=== PATIENT | female | born 1935 | race Caucasian/White ===

== ENCOUNTER → 2016-10-14 | Outpatient (CLI) | payer OTHER ==
[~2016-10-14] MED LIST: ACETAMINOPHEN325 M1 PO; ADULT LOW DOSE81 MG PO; AUGMENTIN 875875 MG PO; CALCIUM 500 +1 EAC5 PO; DOXYCYCLINE 10100 MG PO; DUONEB 2.5-0.5 M3 ML INH; ENOXAPARIN30 MG/0.1 SUBQ; LIPITOR20 MG PO; LOPRESSOR25 PO; MICARDIS40 MG PO; MICONAZOLE NITR45 G1 TOP; MIRALAX17 GM PO; MORPHINE TOP; NEXIUM40 MG PO; NICOTINE TRANSD14 M1 TRANSDERM; NORCO 5-325 TA1 EACH PO; NORVASC 5 MG TAB5 MG PO; NORVASC10 MG PO; OS-CAL 500+D C1 EACH PO; PLAVIX 75 MG TA75 MG PO; PREDNISONE 20 M20 M1 PO; PROAIR HFA8.5 GM INH; SILVADENE TOP; SYNTHROID100 MCG PO; TOPROL XL100 MG PO; TRAMADOL 50 MG50 MG PO
== END ==
LOC: CAT 09:15
DX: I71.4 Abdominal aortic aneurysm, without rupture (principal); R16.1 Splenomegaly, not elsewhere classified

== ENCOUNTER 2016-12-30 16:35 | Inpatient (IN) | payer OTHER ==
[~2016-12-30] VITALS: Ht 170.2 cm; Wt 63.8 kg
--- NOTE | ~2016-12-30 | S ---
[facility] [address] [place] [address] SURGICAL PATH RPT PROCEDURE Name: NANNETTE STILL Room #: 457-P ADM IN M.R.#: [id number] Admission: 12/30/16 Date of : 33 Discharge: Report #: [id number] Path Case #: [id number] PATHOLOGY REPORT COLLECTION DATE: 01/01/2017 RECEIVED DATE: 01/01/2017 SUBMITTING PHYS: Dr. Alberto Barahona OTHER PHYS: Dr. Manjit Aquino SPECIMEN(S) RECEIVED: A.Bone marrow, clot B.Bone marrow, biopsy C.Bone marrow, aspirate smears D.Peripheral smear * * * * * * * * * * * * FINAL DIAGNOSIS: Bone marrow aspirate, biopsy, cell clot and peripheral blood: - Peripheral blood with mild pancytopenia including mild leukopenia, moderate normocytic anemia and mild thrombocytopenia. - Hypercellular bone marrow with trilineage hematopoiesis, mild dyspoiesis and no evidence of lymphoma or acute leukemia. - Scattered non-necrotizing epithelioid granulomas with rare collections of small yeast identified on silver stain. (See comment) COMMENT: Overall the bone marrow is hypercellular for the patient's age with trilineage hematopoiesis, mild dyspoiesis and no evidence of lymphoma or acute leukemia. Scattered variably sized vaguely formed non-necrotizing epithelioid granulomas are identified which show rare collections of small yeast on silver staining. Correlation with serologies and/or microbiology specimens is required. The dyspoiesis is mild and does not meet the morphologic criteria for myelodysplasia. Correlation with clinical history, additional laboratory data and cytogenetics is recommended. The case was discussed with Dr. Alberto Barahona on 01/06/17, at approximately 11:00 AM. (CLW:benjamín; d/t: 01/06/2017) PATHOLOGIST: Justine Vila M.D. REPORT ELECTRONICALLY SIGNED BY: Justine Vila M.D. DATE/TIME: 01/06/2017 15:00 * * * * * * * * * * * * MICROSCOPIC DESCRIPTION: [address] [address] SURGICAL PATH RPT PROCEDURE Name: NANNETTE STILL Room #: 457-P [facility] IN ..#: [id number] Admission: 12/30/16 Date of : 33 Discharge: Report #: [id number] Path Case #: [id number] CBC DATA (01/01/17): WBC: 2,800 /uL; RBC: 3.15; Hgb: 9.0 g/dL; Hct: 27.0%; MCV: 85.8 fL; MCH: 28.5 pg; MCHC: 33.2%; RDW: 19.0%; platelets: 133,000 /uL. Manual white blood cell differential: segs - 80%, bands - 2%, lymphs - 14%, monos - 4%. Peripheral blood smear: Cytomorphological examination of the Benedict's-stained peripheral blood smear confirms the provided data. Red blood cells show moderate normocytic anemia with mild anisopoikilocytosis. Occasional elliptocytes are noted. No schistocytes or microspherocytes are seen. White blood cells are mildly decreased in number. They are predominantly segmented neutrophils and are without significant dyspoiesis or significant left shift. A rare neutrophil has abnormal nuclear lobation. Lymphocytes are predominantly small, round and mature-appearing with condensed chromatin and scant cytoplasm with admixed large granular lymphocytes. On scanning, no markedly atypical lymphoid cells are seen. Monocytes are mature. Platelets are adequate (mildly decreased) in number and mainly normal in morphology with rare larger platelets noted. Aspirate smears: Cytomorphological examination of the Benedict's-stained aspirate smear shows spicules present. The overall cellularity is approximately 80%. The myeloid to erythroid ratio is 2:1. Full myeloid maturation is identified and is without significant dyspoiesis. Erythroid maturation is mildly dyserythropoietic with occasional irregular nuclear contours and rare mitotic figures. In a 500 cell differential, there are less than 1% blasts (no Stu rods are seen), 61% more differentiated myeloids, 32% erythroid precursors, 6% lymphocytes and 1% plasma cells. Megakaryocytes are proportional in number and both normal and abnormal in morphology with variable sizes and nuclear abnormalities. No lymphoid aggregates or markedly atypical lymphoid cells are seen. Plasma cells are without atypia. Iron stain of the aspirate smear shows 1/4+ iron positivity. No ringed sideroblasts are identified. Bone marrow core biopsy and cell clot: The decalcified bone marrow core biopsy is adequate. The bone marrow is hypercellular with an overall cellularity of approximately 60%. The myeloid to erythroid ratio is 2:1. Myeloid maturation is without significant dyspoiesis. Erythroid maturation is mildly dyserythropoietic. Megakaryocytes are normal in number and both normal and abnormal in morphology. No lymphoid aggregates or markedly atypical lymphoid cells are seen. Bony trabeculae and blood vessels are unremarkable. Scattered variably sized, non-necrotizing, vaguely formed epithelioid granulomas are identified. The cell clot has occasional spicules present that are similar in cellularity and differential morphology as previously described. Iron stain of the cell clot (block A1) shows 1/4+ iron positivity with spicules present. Properly-controlled special stains are performed. [address] [address] SURGICAL PATH RPT PROCEDURE Name: NANNETTE STILL Room #: 457-P [facility] IN M.R.#: [id number] Admission: 12/30/16 Date of : 33 Discharge: Report #: [id number] Path Case #: [id number] (Block A1): GMS: stains rare small yeast; AFB: negative for acid fast bacilli. (Block B1): GMS: stains occasional scattered and rare clusters of small yeast; AFB: negative for acid fast bacilli. Flow cytometry: Flow cytometric immunophenotypic analysis was performed at [facility]. The diagnosis is "no diagnostic immunophenotypic abnormalities detected". There are 8.6% lymphocytes. Of the lymphocytes, there are 86% T cells with a CD4:CD8 ratio of 0.5, and no aberrant T cell antigen expression, and 2% polyclonal B cells. There are 0.3% CD34 positive cells (blasts). No immunophenotypic evidence of a lymphoproliferative disorder, acute leukemia, increase in blasts or increased plasma cells is identified. Please see separate flow cytometry report from [facility] ([id number]). Cytogenetics: Cytogenetic chromosomal analysis is pending at [facility] ([id number]). (CLW:benjamín; d/t: 01/06/2017) GROSS PATHOLOGY: A. Received in formalin labeled "Nannette Still and clot, BM aspirate," is blood coagulum, measuring 3.0 x 1.9 x 0.7 cm in aggregate dimensions. The specimen is submitted entirely in cassette A1. B. Received in formalin labeled "Nannette Still and BM biopsy," is a single needle core of chowdhury bone, measuring 0.4 cm in length and 0.2 cm in diameter. The specimen is submitted entirely in cassette B1, following decalcification. (TTL; 01/04/2017) CLINICAL HISTORY: Histoplasmosis. 81-year-old woman with mild pancytopenia. INITIAL CPT CODE(S): A; 98548, 47996, 47607, 92444 B; 74100, 02801, 08104, 24516 C; 58771, 10633 D; 78108 Professional services performed by [facility] at [address] [place] [address] Technical services performed by [facility] at [address] [place] [id number] SURGICAL PATH RPT PROCEDURE Name: NANNETTE STILL Room #: 457-P [facility] IN M.R.#: [id number] Admission: 12/30/16 Date of : 34 Discharge: Report #: [id number] Path Case #: [id number] [place] [address]. [facility] [address] [place] [address] PHONE: [phone] DIRECTOR: Foster Clark M.D. * * * END OF REPORT * * *
--- NOTE | ~2016-12-30 | H ---
[facility] [place] [address] [address] HISTORY AND PHYSICAL Name: ARMANDO STILL Room #: 457-P ADM IN M.R.#: [id number] Admission: 12/30/16 Attend Phys: Ida Swan MD Discharge: Date of : 34 Report #: [id number] THIS REPORT FOR: //name// CC: Bouchra Swan ATTENDING PHYSICIAN: Dr. Ida Swan. PRIMARY CARE PHYSICIAN: Dr. Bouchra Reyes. CHIEF COMPLAINT: Abdominal pain, nausea and vomiting. HISTORY OF PRESENT ILLNESS: The patient is an 81-year-old female who came into the ER complaining of left upper quadrant and epigastric abdominal pain. This started yesterday and she has been very nauseous and actually vomited yesterday, the only thing she has had eat today is protein shake. She has been somewhat short of breath as well. She is familiar to [facility] as she has been here 3 times within the last 3 months and she has continued to decline. She was previously seen for right carotid endarterectomy, which was done in October and since then she has been back in the hospital for hypoxia, acute kidney injury. She was noted to have sores developed in her mouth as well as perianal sore. The sores in her mouth were biopsied and pathology showing granulomatous inflammation and microorganisms suggestive of histoplasmosis, there was no malignancy noted. Her rectal lesion was also biopsied and shown to have numerous fungal yeast elements with marked acute inflammation, ulceration and granulation tissue. This was negative for malignancy as well. She has not been eating well. Her weight has gone down about 30 sounds since October. She has been previously seen by hematology for pancytopenia back in October, which has stabilized. She has monoclonal gammopathy. She has never had any history of pancreatitis. Since arrival she has been given pain medication and is now quite sleepy, denies any nausea at this time. PAST MEDICAL HISTORY: Abdominal aortic aneurysm, COPD, hypertension, UTI, hypothyroidism, chronic kidney disease stage 3, monoclonal gammopathy, hyperlipidemia, peripheral arterial disease. PAST SURGICAL HISTORY: Right renal artery stent, bilateral iliac stents, hysterectomy, left carotid endarterectomy and a right carotid endarterectomy just done in 10/2016. She also had oral surgery with maxillary extractions. ALLERGIES: NEOSPORIN, UNKNOWN REACTION. HOME MEDICATIONS: Augmentin b.i.d., albuterol inhaler p.r.n., nicotine patch daily, Plavix 75 mg daily, Lipitor 20 mg daily, aspirin 162 mg daily, tramadol 50 mg q. 4 hours, Tylenol p.r.n., MiraLax 17 grams daily, levothyroxine 100 mcg daily, miconazole b.i.d. and morphine, Silvadene to the rectum t.i.d. [facility] [address] [place] [address] HISTORY AND PHYSICAL Name: ARMANDO STILL Room #: 457-P [facility] IN M.R.#: [id number] Admission: 12/30/16 Attend Phys: Ida Swan MD Discharge: Date of : 33 Report #: [id number] SOCIAL HISTORY: The patient had been a smoker up until recently when she just quit, she had been smoking up to 1-1/2 packs per day for 65 years. Denies any regular alcohol use and she is currently coming from assisted facility. FAMILY HISTORY: Her sister has IBS. Her brother had an FL at the age of 47 and her father had an FL at the age of 70. REVIEW OF SYSTEMS: Unobtainable due to altered mental status. PHYSICAL EXAMINATION: GENERAL: The patient is sleepy female in no acute distress. VITAL SIGNS: Temperature is 36.6, heart rate 80, respirations 18, blood pressure 125/69 and oxygen 95% on room air. HEENT: PERRLA. Sclerae is nonicteric. Oral mucosa is pink and dry. She has multiple oral lesions. NECK: Supple. There is no JVD noted. CARDIOVASCULAR: Normal S1, S2 with 3/6 systolic ejection murmur. RESPIRATORY: Breath sounds are clear, bilateral upper lobes. She is diminished in both bases. Breathing is nonlabored. ABDOMEN: Soft and tender, the epigastric and left upper quadrant areas. Bowel sounds are positive. VASCULAR: No edema noted. Pedal pulses are 2+. NEUROLOGIC: The patient is very sleepy, but does arouse easily and will shake her head yes and no, but it is mostly nonverbal. She will follow simple commands. SKIN: Intact except for the perirectal ulcer, which is draining a small amount of purulent fluid. LABORATORY AND DIAGNOSTICS: WBC is 5.1 with bands of 9%, hemoglobin 10.3, platelets 168. Sodium 132, potassium 4.9, BUN 53, creatinine 2.7, glucose 107 and lactate is 1.1, calcium is 11.3. AST and ALT are within normal limits. Alkaline phosphatase is 210. Lipase is 1157. UA showed 1+ leukocyte esterase, few WBCs, few bacteria. CT of the abdomen and pelvis shows some inflammatory changes involving the tip of the pancreatic tail suggesting pancreatitis, these changes produces mild thickening of the lateral left fascia and partially involved the proximal descending colon. There was no pseudocyst formation and there are tiny gallstones, but no belly area obstruction. There is rapidly enlarging bilateral adrenal masses, compared to previous exam. There is renal artery stents and bilateral iliac stents. The abdominal aortic aneurysm appears slightly larger. There is no retroperitoneal hemorrhage. ASSESSMENT AND PLAN: 1. Acute pancreatitis. Etiology for this is not clear. She did have multiple other changes on her CT which may be concerning for underlying cancer pathology and there is concern for histoplasmosis as well. We will keep her n.p.o. and continue with pain control. Continue IV fluids. Repeat lipase in the morning. [facility] [address] [place] [address] HISTORY AND PHYSICAL Name: ARMANDO STILL Room #: 457-P [facility] IN [facility]#: [id number] Admission: 12/30/16 Attend Phys: Ida Swan MD Discharge: Date of : 34 Report #: [id number] 2. Acute on chronic kidney disease. She has had elevated creatinine in the recent past, but upon discharge on 12/12/2016 her creatinine was down to 1.7. She does have poor p.o. intake. We will continue IV fluids. She is not on any nephrotoxic medications. 3. Enlarging adrenal masses. According to CT these are rapidly enlarging from the previous exam, I am not sure if these are related to underlying cancer pathology or possibly histoplasmosis, then may need to be biopsied. 4. Had oral lesions, her recent biopsy suggested histoplasmosis. Continue with pain control. 5. Perianal lesion, recent biopsy suggests fungus, I am not sure if this has been discussed as concern for histoplasmosis along with oral lesions. Perianal lesion has been by cultured. The surrounding tissue does not look infected, so we will hold off on antibiotics at this time. 6. Chronic obstructive pulmonary disease. This is stable. No signs of exacerbation. 7. Abdominal aortic aneurysm. This was known and is slightly larger compared to previous CT, continue to follow and control blood pressure. 8. Monoclonal gammopathy. The patient has previously been evaluated by Dr. Melvin with hematology-oncology and who did not feel that she needed a bone marrow biopsy. 9. 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 She also has weight loss as well as recent pancytopenia and hypercalcemia, increasing adrenal masses. I did find that in some cases of disseminated histoplasmosis, pancreatitis may be a complication. We will consult Infectious Disease for further evaluation for this. 10. Deep venous thrombosis prophylaxis, place sequential compression devices. We will continue to follow the patient closely throughout the hospitalization and make changes based on clinical status. <ELECTRONICALLY SIGNED> By: YOHANA Nick 01/05/17 0658 [phone] YOHANA Nick /lashanda
--- NOTE | ~2016-12-30 | HC ---
[facility] [place] [address] [address] CONSULTATION Name: ARMANDO STILL Room #: 457-P [facility] IN M.R.#: [id number] Admission: 12/30/16 Attend Phys: Manjit Torres MD Discharge: Date of : 34 Report #: [id number] THIS REPORT FOR: //name// CC: Manjit Reyes DATE OF SERVICE: 12/31/2016 REASON FOR CONSULTATION: Acute kidney injury. HISTORY OF PRESENT ILLNESS: This 81-year-old female was recently admitted to [facility] with acute kidney injury secondary to dehydration. She has known diffuse atherosclerotic cardiovascular disease with longstanding tobacco abuse and multiple complications thereof. She is status post previous renal artery stents, bilateral iliac artery stents and prior carotid endarterectomy. She has chronic kidney disease with a baseline creatinine in the mid 1 range. She has had prior episodes of acute kidney injury with creatinines having ranged as high as 3.0. She was discharged from [facility] on 12/12, due to urinary tract infection. She is readmitted at this time with diffuse weakness and left upper quadrant pain. Her condition has deteriorated over the past several days. She has had poor oral intake of food and fluids. She denies fevers, chills, or sweats. PAST MEDICAL HISTORY: Remarkable for a recent oral lesion biopsy revealing evidence of histoplasmosis. The patient has been seen by Dr. Alberto Barahona in evaluation, though details of this and any treatment thereof are not known. Past medical history remarkable as described above. She has a known rectal lesion status post biopsy revealing yeast elements. She has lost approximately 30 pounds over the past several months. Past medical history is otherwise remarkable as described above. The patient has also undergone previous hysterectomy and multiple dental extractions. ALLERGIES: Reported to NEOSPORIN. MEDICATIONS ON ADMISSION: Include Augmentin, albuterol, nicotine patch, Plavix, Lipitor, aspirin, tramadol, Tylenol, MiraLax, levothyroxine, miconazole, morphine, and Silvadene. PERSONAL AND SOCIAL HISTORY: The patient is a reformed smoker, having smoked until very recently. She has a history of approximately one and half packs per day for 65 years. FAMILY HISTORY: Remarkable for myocardial infarction. Negative for renal disease. REVIEW OF SYSTEMS: Remarkable for dyspnea with minimal exertion. She denies [address] [address] CONSULTATION Name: ARMANDO STILL Room #: [address] [place] [address] [place] ..#: [id number] Admission: 12/30/16 Attend Phys: Manjit Torres MD Discharge: Date of : 33 Report #: [id number] productive cough or hemoptysis. She denies chest pain or palpitations. She denies nausea, vomiting, diarrhea or constipation. PHYSICAL EXAMINATION: GENERAL: Revealed a lethargic, but arousable, elderly female who appears older than her stated age. VITAL SIGNS: Temperature 98.3, pulse 55, respirations 18, and blood pressure 112/43. SKIN: Warm and dry. There is diminished turgor noted. Mucous membranes are very dry. Neck veins are flat. HEENT: The head is normocephalic and atraumatic. The sclerae are white. The pharynx is benign. NECK: Supple. LUNGS: Garnett are grossly clear to percussion and auscultation. CARDIOVASCULAR: Reveals a regular rate and rhythm without rub. ABDOMEN: Soft and nontender. NEUROLOGIC: Reveals the patient to be alert and cooperative. There is no focal neurologic deficit noted. LABORATORY STUDIES: Available at the time of consultation include sodium 132, potassium 4.9, chloride 101, CO2 of 25, BUN 53, creatinine 2.7, and glucose 107. White blood cell count 5100, hemoglobin 10.3, hematocrit 31.3, and platelet count 168,000. Review of radiographs revealed an abnormal CT scan revealing bilateral adrenal masses, suspected pulmonary process. ASSESSMENT: 1. Acute kidney injury secondary to acute dehydration/prerenal azotemia in the setting of ischemic nephropathy. 2. Chronic kidney disease. 3. Possible acute adrenal insufficiency secondary to adrenal gland enlargement presumed on an infectious etiology/histoplasmosis. 4. 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 5. Diffuse atherosclerosis. 6. Previous oral lesions with biopsy showing histoplasmosis. 7. Advanced chronic obstructive pulmonary disease secondary to longstanding tobacco abuse. PLAN: 1. I will obtain a random serum cortisol and initiate stress doses of Solu-Cortef 100 mg IV q.6 hours pending result thereof. ID consultation with her Dr. Barahona has been requested regarding treatment of her suspected disseminated histoplasmosis. 2. This patient is quite ill in the setting of a suspected disseminated infection, prerenal azotemia, malnutrition and chronic tobacco abuse. There is [address] [address] CONSULTATION Name: ARMANDO STILL Room #: 457-P ADM IN M.R.#: [id number] Admission: 12/30/16 Attend Phys: Manjit Torres MD Discharge: Date of : 34 Report #: [id number] no family present at this time to discuss these matters with. Please see orders. <ELECTRONICALLY SIGNED> By: Haris Aquino MD 01/02/17 0826 [id number] Haris Aquino MD /nt
--- NOTE | ~2016-12-30 | HC ---
[facility] [address] CONSULTATION Name: ARMANDO STILL Room #: 457-P ADM IN M.R.#: [id number] Admission: 12/30/16 Attend Phys: Manjit Torres MD Discharge: Date of : 34 Report #: [id number] THIS REPORT FOR: //name// CC: Manjit Reyes INFECTIOUS DISEASE CONSULTATION REASON FOR CONSULTATION: I was asked to evaluate concerning suspected histoplasmosis. Now admitted with pancreatitis. HISTORY OF PRESENT ILLNESS: The patient was an 81-year-old, who I had seen last week for evaluation of possible histoplasmosis infection. Review of her previous records and having talked with oncology, wound care and pathology, I identified a gingival biopsy and a perianal biopsy that showed organisms consistent with histoplasma. She also had imaging studies including CT scan of the chest and abdomen, which showed no evidence of pulmonary disease. She has a known aortic aneurysm, approximately 5.2 cm, along with some adrenal hypertrophy. She has known vasculopathy and she had previous stenting procedures. She also has underlying COPD. Following the evaluation last week, laboratory studies were to be obtained. I also ordered itraconazole. According to records now, it does not appear that the patient was taking the itraconazole. Family members were unsure. I do know that they received the faxed orders from my office to the [facility]. Over the last 2 days, she has developed increased nausea associated with vomiting and upper abdominal pain. Hospitalized now with [id number] renal failure along with evidence of pancreatitis, with CT scan showing increased inflammatory changes around the pancreas and her creatinine is elevated. She also was noted on CAT scan to have enlarging adrenal masses bilaterally, which have increased significantly over the past 2 months. No documented fever, chills or sweats. REVIEW OF SYSTEMS: She has had no cough or sputum production. No chest pain. No dysuria or frequency. PAST MEDICAL HISTORY: COPD, hypertension, coronary artery disease, congestive heart failure, peripheral vascular disease, aortic aneurysm, chronic kidney disease, osteoporosis, hypothyroidism, monoclonal gammopathy of indeterminant significance, hyperlipidemia, diverticulitis and carotid endarterectomy. FAMILY HISTORY: Noncontributory, other than a report of a sister that had histoplasma ocular disease. ALLERGIES: None known. MEDICATIONS: As noted on her MAR, which were reviewed. PHYSICAL EXAMINATION: [address] [address] CONSULTATION Name: ARMANDO STILL Room #: [address] [place] [address] IN M.R.#: [id number] Admission: 12/30/16 Attend Phys: Manjit Torres MD Discharge: Date of : 34 Report #: [id number] VITAL SIGNS: She was afebrile and hemodynamically stable. GENERAL: She was alert and cooperative, but very weak. SKIN: Unremarkable. LYMPH: Unremarkable. HEENT: Mouth had gingival ulcerations, unchanged from last week. Mouth was dry. LUNGS: Clear. HEART: Regular. ABDOMEN: Soft. Tender in the epigastric region. No hepatosplenomegaly or mass appreciated. EXTREMITIES: Unremarkable. GENITOURINARY: Her perianal ulcer was unchanged. LABORATORY STUDIES: Sodium 132, potassium 4.9, bicarbonate 25 and creatinine 2.7, noting her previous creatinine of 1.6. Lipase 1157. Alkaline phosphatase 210, ALT 17. Hemoglobin 10.3, WBC 5.1, unremarkable differential and platelet count 168,000. Lactate 1.1. LDH 151. Urinalysis unremarkable. CT scan of the abdomen and pelvis, left lower lobe atelectasis, mild steatosis, mild pancreatitis changes and increased adrenal masses. No significant retroperitoneal adenopathy. IMPRESSION AND PLAN: An 81-year-old with now acute pancreatitis. Cause of this is yet to be determined. 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 We will need to confirm the diagnosis. Underlying hematologic malignancy is yet to be ruled out. Acute renal failure. Recommendation, we will obtain serologies, HIV testing and sedimentation rate. Arrange for bone marrow biopsy. Begin antifungal therapy if not done yet. Itraconazole may be associated with some nausea and vomiting, but typically, I have not seen evidence of pancreatitis. We will see if she was actually on this steroid or not before determining next step in our treatment. <ELECTRONICALLY SIGNED> By: Alberto Barahona MD 12/31/162012 1125 1437 Alberto Barahona MD /nt
--- NOTE | ~2016-12-30 | HC ---
[facility] [place] [address] CONSULTATION Name: ARMANDO STILL Room #: 457-P ADM IN M.R.#: [id number] Admission: 12/30/16 Attend Phys: Ida Swan MD Discharge: Date of : 34 Report #: [id number] THIS REPORT FOR: //name// CC: Alberto Fisher PhD Luke Aquino MD REASON FOR CONSULTATION: Leukopenia. 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 She was admitted this admission on December 31 for pancreatitis, which appears to be resolving. She also on admit was found to have a white count of 5.1. On the , 2 days ago, it was 3.8 and yesterday, 1.6 and today 5. Also during that same time, her hemoglobin had been a little bit lower yesterday at 9.1; today, it is 9.2. Platelet count 2 days ago 142,000; yesterday 100,000 and today 126,000. Note that the differential done several days ago does not show any acute forms, but does show some slight increase in segmented neutrophils. I am suspicious that this might have been related to a test tube draw phenomenon. The patient also had a bone marrow biopsy several days ago, which is pending. She says recently she has not had any known fevers or chills. Had been shortness of breath earlier, but it is more fatigue. Does have a generalized achiness. She is not aware of any skin rash. Does still have a little sore bottom from the ulcers. Note that she had been tested for amyloid stain in the past and was negative. Also her renal function, which had been slightly worse on admission, is now doing better. Creatinine had been at 2.7 and is now down to 1.7. Transaminases, lipase had been as high as 1157 on admit, down to 837. Total bilirubin has remained normal. Calcium had been high at 11.3 on admit, currently 8.9. Alkaline phosphatase was 210, now 126; ALT has been stable at 1719 throughout. Total protein low of 4.5. Albumin 1.6. Iron studies done back in November showed percent sat of 41, iron of 76. Coags done earlier this admit had been normal. Note that her serum protein electrophoresis on 11/13/2016 showed the M spike of 0.1 grams per deciliter. Note that she has had a total CD4 low at 145 this admit. Sed rate had been 15 this admit. IgG back on December 10 was 552, IgA 84 and IgM 223. Serum immunofixation electrophoresis done twice on 11/13/2016; it showed an IgM monoclonal protein with kappa light chain as well as an IgG monoclonal protein with lambda light chain. When repeated on December 10 they only saw the IgM kappa monoclonal protein, suggesting these are both very small. TSH back on December 08 was 11.7. Ferritin on [facility] [address] [place] [address] CONSULTATION Name: ARMANDO STILL Room #: 884-P ADM IN Tea.R.#: [id number] Admission: 12/30/16 Attend Phys: Ida Swan MD Discharge: Date of : 34 Report #: [id number] December 31 was 956; in November, it was 438. Folic acid in November of 5.7. Vitamin B12 was 18, same date. HIV antibody is pending. Intact PTH back in November was low at 7. The patient had urine test including free kappa-lambda light chain ratio of 24-hour urine. The free kappa light chains were 160 mg per liter; over 24 hours, they had been 209 mg for 24 hours. The free lambda over 24 hours was 13, giving a ratio of 16.25, which is little bit above normal. The patient also on November 13 had a, I believe, this was a serum free light chain kappa that was 108, lambda was 45, with a kappa-lambda ratio of 2.4, which is above normal. The patient has had imaging including CT abdomen and pelvis done on December 30, showing no inflammatory changes involving the tip of the pancreatic tail. They did see some mild thickening. Lower chest had chronic changes in both lungs. CT chest, high resolution, December 23, showed extensive coronary artery calcification and atherosclerosis. PAST MEDICAL HISTORY: Has a history of monoclonal gammopathy of unknown significance, with both IgG which may have disappeared and IgM which persisted at a low quantity. Bone marrow is pending. 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 SOCIAL HISTORY: Had worked a number of jobs. Smoked for 65 years. No significant alcohol. MEDICATIONS: At this time in the hospital include IV fluids, tamsulosin 0.4 daily, amphotericin 200 mg daily, nystatin rinse q.6h. scheduled, morphine and Silvadene topically, Zofran p.r.n. and electrolytes as needed. PHYSICAL EXAMINATION: GENERAL: The patient appears her stated age. VITAL SIGNS: Height is 5 feet 7, which is 170.2 cm. Weight is 140 pounds, which is 63.8 kilograms. Blood pressure 117/67, O2 sat 93%, respirations 20, pulse 99 and temperature 98.4. MOOD: She is pleasant, but tired. Has a Dobbhoff in place in her naris. NEUROLOGIC: Face is symmetrical. She is moving all extremities. LYMPHATICS: No enlarged lymph nodes in the supraclavicular, cervical, axillary or inguinal region. ABDOMEN: Slightly obese, slightly tender, but not of a surgical nature, more of a discomfort. EXTREMITIES: Without clubbing or cyanosis. There is trace edema. ASSESSMENT AND PLAN: 1. Leukopenia, resolved overnight. Suggest that this might have been artifact and an invtro phenomenon related to test tube filling. Continue monitoring, [place] [address] CONSULTATION Name: ARMANDO STILL Room #: 457-P [facility] IN M.R.#: [id number] Admission: 12/30/16 Attend Phys: Ida Swan MD Discharge: Date of : 34 Report #: [id number] biopsy results. 2. History of does monoclonal gammopathy of undermined significance, IgG and IgM. Await bone marrow biopsies. 3. Disseminated histoplasmosis. Amphotericin per ID. 4. Hypothyroid. Will need replacement. 5. Protein-calorie malnutrition. Continue either Dobhoff feeding or TPN. 6. Renal insufficiency. Continue monitoring and hydration cautiously. 7. Anemia. Continue monitoring. We will follow with you. <ELECTRONICALLY SIGNED> By: Dalton Melvin MD 01/07/17 0735 0805 1114 Dalton Melvin MD /nt
[2016-12-30 16:38] VITALS: BP 86/55
[2016-12-30 17:36] LABS: URINE BILIRUBIN NEGATIVE (Negative); URINE BLOOD 2+ (Negative); URINE COLOR YELLOW; URINE GLUCOSE-RANDOM* NEGATIVE (Negative); URINE KETONES NEGATIVE (Negative); URINE LEUKOCYTES-REFLEX 1+ (Negative); URINE PROTEIN (DIPSTICK) 1+ (Negative); URINE UROBILINOGEN 0.2 E.U./dl (0.2-1.0)
[2016-12-30 17:47] LABS: URINE WBC-REFLEX 6-15 Few /HPF (0-5)
[2016-12-30 17:48] LABS: CASTS None Seen /LPF (None Seen); CRYSTALS None Seen /LPF (None Seen); SQUAMOUS 0-3 Few /LPF (0-3); URINE RBC 0-2 Rare /HPF (0-2)
[2016-12-30 20:15] LABS: ABSOLUTE NEUTROPHILS 3.8 thou/uL (1.4-8.2); BASOPHILS 0.7 % (0.0-2.0); EOSINOPHILS 4.1 % (0.0-3.0); HEMATOCRIT 31.3 % (37.0-47.0); HEMOGLOBIN 10.3 gm/dL (12.0-15.0); LYMPHOCYTES 11.9 % (24.0-44.0); MANUAL DIFF NO; MCH 28.2 pg (26.0-34.0); MCHC 32.8 g/dL (28.0-37.0); MCV 86.1 fL (80.0-100.0); MONOCYTES 8.3 % (1.0-8.0); PLATELET COUNT 168 thou/uL (150-400); RBC 3.63 mil/uL (4.20-5.00); RDW 18.7 % (10.5-14.5); WBC 5.1 thou/uL (4.0-11.0)
[2016-12-30 20:26] LABS: CALCIUM 11.3 mg/dL (8.5-10.1); CREATININE 2.7 mg/dL (0.6-1.3); POTASSIUM 4.9 mmol/L (3.5-5.1)
[2016-12-30 20:30] LABS: ALBUMIN 2.1 g/dL (3.4-5.0); TOTAL PROTEIN 5.5 g/dL (6.4-8.2)
[2016-12-30 21:45] VITALS: BP 125/69
[2016-12-31] VITALS (13 sets, daily range): BP systolic 62–156; BP diastolic 22–62
[2017-01-01 04:44] VITALS: BP 134/74
[2017-01-01 06:14] LABS: MCH 28.5 pg (26.0-34.0); MCHC 33.2 g/dL (28.0-37.0); MCV 85.8 fL (80.0-100.0); PLATELET COUNT 133 thou/uL (150-400); RBC 3.15 mil/uL (4.20-5.00); WBC 2.8 thou/uL (4.0-11.0)
[2017-01-01 06:15] LABS: MANUAL DIFF YES
[2017-01-01 06:32] LABS: ALBUMIN 1.9 g/dL (3.4-5.0); CALCIUM 9.6 mg/dL (8.5-10.1); CREATININE 2.7 mg/dL (0.6-1.3); MAGNESIUM 2.1 mg/dL (1.8-2.4); POTASSIUM 4.8 mmol/L (3.5-5.1); TOTAL BILIRUBIN 0.7 mg/dL (<0.1-1.0)
[2017-01-01 07:38] LABS: ABSOLUTE NEUTROPHILS 2.3 thou/uL (1.4-8.2); TOTAL CELL COUNT 100
[2017-01-01 07:54] LABS: INR 1.3; PROTIME 13.3 Seconds (9.3-11.4)
[2017-01-01 07:59] VITALS: BP 152/79
[2017-01-01 09:11] VITALS: BP 158/80
[2017-01-01 11:44] VITALS: BP 156/73
[2017-01-01 15:07] LABS: CD3 % 85.8 % (57.5-86.2); CD4:CD8 0.51 (0.92-3.72)
[2017-01-01 19:27] VITALS: BP 167/71
[2017-01-02 02:57] VITALS: BP 168/69
[2017-01-02 04:01] LABS: HEMATOCRIT 29.4 % (37.0-47.0); HEMOGLOBIN 9.7 gm/dL (12.0-15.0); MCH 28.8 pg (26.0-34.0); MCHC 32.9 g/dL (28.0-37.0); MCV 87.7 fL (80.0-100.0); RBC 3.36 mil/uL (4.20-5.00); RDW 18.7 % (10.5-14.5)
[2017-01-02 04:15] LABS: CALCIUM 9.4 mg/dL (8.5-10.1); CREATININE 2.7 mg/dL (0.6-1.3); POTASSIUM 4.4 mmol/L (3.5-5.1)
[2017-01-02 07:34] VITALS: BP 140/71
[2017-01-02 11:53] VITALS: BP 170/80
[2017-01-02 16:13] VITALS: BP 157/75
[2017-01-02 19:07] LABS: HISTOPLASMA MYCELIAL-ID Negative (Negative)
[2017-01-02 19:36] VITALS: BP 155/67
[2017-01-02 23:11] VITALS: BP 144/62
[2017-01-03 03:34] VITALS: BP 141/65
[2017-01-03 04:50] LABS: ABSOLUTE NEUTROPHILS 3.1 thou/uL (1.4-8.2); BASOPHILS 0.2 % (0.0-2.0); EOSINOPHILS 1.2 % (0.0-3.0); HEMATOCRIT 26.4 % (37.0-47.0); HEMOGLOBIN 8.7 gm/dL (12.0-15.0); LYMPHOCYTES 9.7 % (24.0-44.0); MCH 28.6 pg (26.0-34.0); MCHC 32.8 g/dL (28.0-37.0); MCV 87.1 fL (80.0-100.0); MONOCYTES 8.5 % (1.0-8.0); PLATELET COUNT 142 thou/uL (150-400); POLYS 80.4 % (36.0-66.0); RBC 3.04 mil/uL (4.20-5.00); RDW 19.3 % (10.5-14.5); WBC 3.8 thou/uL (4.0-11.0)
[2017-01-03 04:53] LABS: MANUAL DIFF NO
[2017-01-03 05:19] LABS: ALBUMIN 1.8 g/dL (3.4-5.0); CREATININE 2.3 mg/dL (0.6-1.3); PHOSPHORUS 3.6 mg/dL (2.5-4.9); POTASSIUM 3.6 mmol/L (3.5-5.1); TOTAL BILIRUBIN 0.6 mg/dL (<0.1-1.0); TOTAL PROTEIN 4.6 g/dL (6.4-8.2)
[2017-01-03 08:14] VITALS: BP 132/53
[2017-01-03 12:26] VITALS: BP 145/59
[2017-01-03 15:55] VITALS: BP 149/65
[2017-01-03 21:04] VITALS: BP 126/52
[2017-01-04 03:29] VITALS: BP 137/66
[2017-01-04 05:19] LABS: ALBUMIN 1.6 g/dL (3.4-5.0); CALCIUM 8.8 mg/dL (8.5-10.1); CREATININE 1.9 mg/dL (0.6-1.3); PHOSPHORUS 2.8 mg/dL (2.5-4.9); POTASSIUM 3.4 mmol/L (3.5-5.1); TOTAL BILIRUBIN 0.6 mg/dL (<0.1-1.0); TOTAL PROTEIN 4.5 g/dL (6.4-8.2)
[2017-01-04 06:54] VITALS: BP 157/59
[2017-01-04 07:26] LABS: HEMATOCRIT 27.5 % (37.0-47.0); HEMOGLOBIN 9.1 gm/dL (12.0-15.0); MCH 28.9 pg (26.0-34.0); MCHC 32.9 g/dL (28.0-37.0); RBC 3.13 mil/uL (4.20-5.00); RDW 19.1 % (10.5-14.5)
[2017-01-04 07:30] LABS: WBC 1.6 thou/uL (4.0-11.0)
[2017-01-04 12:00] VITALS: BP 154/62
[2017-01-04 15:40] VITALS: BP 178/73
[2017-01-04 19:50] VITALS: BP 125/61
[2017-01-05 03:02] VITALS: BP 179/75
[2017-01-05 05:56] LABS: HEMATOCRIT 28.2 % (37.0-47.0); HEMOGLOBIN 9.2 gm/dL (12.0-15.0); MCH 28.9 pg (26.0-34.0); MCHC 32.7 g/dL (28.0-37.0); MCV 88.3 fL (80.0-100.0); RBC 3.2 mil/uL (4.20-5.00); RDW 18.8 % (10.5-14.5)
[2017-01-05 06:16] LABS: ALBUMIN 1.6 g/dL (3.4-5.0); CALCIUM 8.9 mg/dL (8.5-10.1); CREATININE 1.7 mg/dL (0.6-1.3); PHOSPHORUS 2.3 mg/dL (2.5-4.9); POTASSIUM 3.7 mmol/L (3.5-5.1); TOTAL BILIRUBIN 0.6 mg/dL (<0.1-1.0); TOTAL PROTEIN 4.5 g/dL (6.4-8.2)
[2017-01-05 07:21] VITALS: BP 117/67
[2017-01-05 16:00] VITALS: BP 148/58
[2017-01-05 19:10] VITALS: BP 126/84
[2017-01-05 19:20] VITALS: BP 137/65
[2017-01-05 23:08] LABS: HISTOPLASMA MYCELIAL-CF Negative (Neg:<1:2); HISTOPLASMA YEAST BY CF Negative (Neg:<1:2)
[2017-01-06 03:15] VITALS: BP 144/63
[2017-01-06 05:21] LABS: HEMATOCRIT 24.9 % (37.0-47.0); HEMOGLOBIN 8.2 gm/dL (12.0-15.0); RBC 2.83 mil/uL (4.20-5.00); RDW 19.6 % (10.5-14.5); WBC 5.1 thou/uL (4.0-11.0)
[2017-01-06 05:41] LABS: ALBUMIN 1.4 g/dL (3.4-5.0); CALCIUM 8.8 mg/dL (8.5-10.1); CREATININE 1.7 mg/dL (0.6-1.3); PHOSPHORUS 2.3 mg/dL (2.5-4.9)
[2017-01-06 07:08] VITALS: BP 140/63
[2017-01-06 11:11] VITALS: BP 150/66
[2017-01-06 15:15] VITALS: BP 155/68
[2017-01-06 19:08] LABS: HIV 1 AB Negative (Negative); HIV 1 RNA QUALITATIVE Negative (Negative); HIV 2 AB Negative (Negative)
[2017-01-06 19:47] VITALS: BP 131/67
[2017-01-07 03:48] VITALS: BP 148/78
[2017-01-07 05:36] LABS: CALCIUM 9.7 mg/dL (8.5-10.1); CREATININE 1.7 mg/dL (0.6-1.3); POTASSIUM 4.2 mmol/L (3.5-5.1)
[2017-01-07 05:42] LABS: HEMATOCRIT 25.9 % (37.0-47.0); HEMOGLOBIN 8.4 gm/dL (12.0-15.0); MCH 28.6 pg (26.0-34.0); MCHC 32.4 g/dL (28.0-37.0); MCV 88.2 fL (80.0-100.0); RBC 2.94 mil/uL (4.20-5.00); RDW 19.4 % (10.5-14.5); WBC 4.8 thou/uL (4.0-11.0)
[2017-01-07 08:00] VITALS: BP 127/62
[2017-01-07 11:50] VITALS: BP 116/62
[2017-01-07 14:06] LABS: URINE BILIRUBIN NEGATIVE (Negative); URINE BLOOD 3+ (Negative); URINE COLOR YELLOW; URINE GLUCOSE-RANDOM* NEGATIVE (Negative); URINE KETONES NEGATIVE (Negative); URINE NITRITE NEGATIVE (Negative); URINE PROTEIN (DIPSTICK) 1+ (Negative); URINE SPECIFIC GRAVITY 1.015 (1.003-1.035); URINE UROBILINOGEN 0.2 E.U./dl (0.2-1.0)
[2017-01-07 14:16] LABS: CASTS None Seen /LPF (None Seen); SQUAMOUS 4-10 Moderate /LPF (0-3)
[2017-01-07 14:17] LABS: CALCIUM OXALATE 4-10 Moderate /LPF (None Seen); URINE WBC >25 Many /HPF (0-5)
[2017-01-07 14:18] LABS: BACTERIA >30 Many /HPF (None Seen); URINE RBC 3-10 Few /HPF (0-2)
[2017-01-07 16:29] VITALS: BP 145/63
[2017-01-07 19:44] VITALS: BP 119/57
[2017-01-08 03:03] VITALS: BP 133/69
[2017-01-08 04:52] LABS: CALCIUM 10.1 mg/dL (8.5-10.1); CREATININE 1.7 mg/dL (0.6-1.3); POTASSIUM 4.3 mmol/L (3.5-5.1)
[2017-01-08 09:12] VITALS: BP 104/57
[2017-01-08] MEDS ORDERED: FLOMAX0.4 MG PO (09:14)
[2017-01-08] MEDS ORDERED: MEGESTROL40 MG/1 M1 PER TUBE (09:14)
[2017-01-08] MEDS ORDERED: BACTRIM DS TAB1 EACH PO (09:14)
[2017-01-08] MEDS ORDERED: AMBISOME IVPB (09:19)
[2017-01-08 11:25] VITALS: BP 112/65
[2017-01-09 18:06] LABS: BLASTOMYCES-IMMUNODIFF Negative (Neg:<1:1); HISTOPLASMA-IMMUNODIFF Negative (Neg:<1:1)
[2017-01-10 13:10] LABS: ASPERGILLUS FLAVUS-ID Negative (Neg:<1:1); ASPERGILLUS FUMIGATUS-ID Negative (Neg:<1:1); ASPERGILLUS NIGER-ID Negative (Neg:<1:1)
== END 2017-01-08 14:22 | DRG 867 ==
LOC: ER 16:35 → 4W 21:00 → EROBS 21:00 → 4W 21:30
PROVIDERS: Emergency Medicine; Family Medicine; Hospitalist; Internal Medicine Nephrology; Radiology Vascular & Interventional Radiology; Specialist
PROC: 07DR3ZX Extraction of Iliac Bone Marrow, Percutaneous Approach, Diagnostic (ICD-10-PCS; principal; 2017-01-01)
PROC: B548ZZA Ultrasonography of Superior Vena Cava, Guidance (ICD-10-PCS; 2017-01-04)
PROC: 02HV33Z Insertion of Infusion Device into Superior Vena Cava, Percutaneous Approach (ICD-10-PCS; 2017-01-04)
PROC: B5181ZA Fluoroscopy of Superior Vena Cava using Low Osmolar Contrast, Guidance (ICD-10-PCS; 2017-01-04)
DX: B39.9 Histoplasmosis, unspecified (principal); K85.90 Acute pancreatitis without necrosis or infection, unspecified; E43 Unspecified severe protein-calorie malnutrition; N17.9 Acute kidney failure, unspecified; N39.0 Urinary tract infection, site not specified; I13.0 Hypertensive heart and chronic kidney disease with heart failure and stage 1 through stage 4 chronic kidney disease, or unspecified chronic kidney disease; J44.9 Chronic obstructive pulmonary disease, unspecified; I71.4 Abdominal aortic aneurysm, without rupture; D47.2 Monoclonal gammopathy; E27.9 Disorder of adrenal gland, unspecified; L08.9 Local infection of the skin and subcutaneous tissue, unspecified; L98.499 Non-pressure chronic ulcer of skin of other sites with unspecified severity; E03.9 Hypothyroidism, unspecified; I25.10 Atherosclerotic heart disease of native coronary artery without angina pectoris; N18.3 Chronic kidney disease, stage 3 (moderate); I50.9 Heart failure, unspecified; M81.0 Age-related osteoporosis without current pathological fracture; E86.0 Dehydration; D72.819 Decreased white blood cell count, unspecified; D64.9 Anemia, unspecified; I95.9 Hypotension, unspecified; R33.9 Retention of urine, unspecified; K57.90 Diverticulosis of intestine, part unspecified, without perforation or abscess without bleeding; I73.9 Peripheral vascular disease, unspecified; E78.5 Hyperlipidemia, unspecified; Z98.42 Cataract extraction status, left eye; Z98.41 Cataract extraction status, right eye; Z88.1 Allergy status to other antibiotic agents; Z90.710 Acquired absence of both cervix and uterus; Z88.8 Allergy status to other drugs, medicaments and biological substances; Z68.22 Body mass index [BMI] 22.0-22.9, adult; Z95.820 Peripheral vascular angioplasty status with implants and grafts; Z87.891 Personal history of nicotine dependence; Z82.49 Family history of ischemic heart disease and other diseases of the circulatory system; Z79.82 Long term (current) use of aspirin; Z79.899 Other long term (current) drug therapy

== ENCOUNTER → 2017-02-02 | Outpatient (CLI) | payer OTHER ==
[~2017-02-02] MED LIST changes: +AMBISOME IVPB; +BACTRIM DS TAB1 EACH PO; +FLOMAX0.4 MG PO; +MEGESTROL40 MG/1 M1 PER TUBE
== END | disposition home or self-care (01) ==
LOC: SPEC 07:22 → RAD 07:26 → SPEC 07:26
DX: Z45.2 Encounter for adjustment and management of vascular access device (principal); I10 Essential (primary) hypertension; J44.9 Chronic obstructive pulmonary disease, unspecified

== ENCOUNTER 2017-03-29 09:41 | Inpatient (IN) | payer OTHER ==
[~2017-03-29] VITALS: Ht 170.2 cm; Wt 64.7 kg
--- NOTE | ~2017-03-29 | CNG ---
[facility] [place] [address] CYTO-NONGYN REPORT PROCEDURE Name: NANNETTE STILL Room #: 453-P ADM IN M.R.#: [id number] Admission: 03/29/17 Date of : 34 Discharge: Report #: [id number] Path Case #: [id number] CYTOPATHOLOGY REPORT COLLECTION DATE: 04/02/2017 RECEIVED DATE: 04/05/2017 SUBMITTING PHYS: Dr. Lalitha Weber OTHER PHYS: Dr. Bouchra Lopez MD CLINICAL HISTORY: Pneumonia, fever, Lower extremity edma SPECIMEN(S) RECEIVED: A.Pleural fluid * * * * * * * * * * * * FINAL DIAGNOSIS: A. Pleural fluid: - No malignant epithelial cells identified. Reactive mesothelial cells and abundant acute inflammatory cells present. PATHOLOGIST: Faith Metzger M.D. REPORT ELECTRONICALLY SIGNED BY: Faith Metzger M.D. DATE/TIME: 04/06/2017 14:55 * * * * * * * * * * * * GROSS PATHOLOGY: A. Pleural fluid: The specimen is submitted unfixed, labeled "Nannette Still". Received by the Cytology Department is 15 mL of clear yellow fluid. One ThinPrep slide and a cell block were prepared. (mm 04.05.2017) HOME SCHOOL TEACHER(S): MYLES Hodge([facility]) INITIAL CPT CODE(S): A; 27814, 26798 Professional services performed by [facility] at [facility] [address], [place] [address] Technical services performed by [facility] at [address] [place] [address]., [address], [place] [address]. [facility] [address] [place] [address], [facility] [address] [place] [address] [facility] [address] [place] [address] CYTO-NONGYN REPORT PROCEDURE Name: TESSYNANNETTE BERNARDINO Room #: 453-P ADM IN M.R.#: [id number] Admission: 03/29/17 Date of : 34 Discharge: Report #: [id number] Path Case #: [id number] PHONE: [phone] DIRECTOR: Foster Clark M.D. * * * END OF REPORT * * *
--- NOTE | ~2017-03-29 | CNG ---
[facility] [place] [address] CYTO-NONGYN REPORT PROCEDURE Name: NANNETTE STILL Room #: 247-P ADM IN M.R.#: [id number] Admission: 03/29/17 Date of : 34 Discharge: Report #: [id number] Path Case #: [id number] CYTOPATHOLOGY REPORT COLLECTION DATE: 03/31/2017 RECEIVED DATE: 03/31/2017 SUBMITTING PHYS: Dr. Lalitha Weber OTHER PHYS: Dr. Bouchra Lopez MD CLINICAL HISTORY: Pneumonia, Fever, Low extremity edema SPECIMEN(S) RECEIVED: A.Pleural fluid * * * * * * * * * * * * FINAL DIAGNOSIS: Pleural fluid: - No malignant epithelial cells identified. - Normal and reactive mesothelial cells and numerous histiocytes present. (see comment) COMMENT: Properly controlled immunohistochemical stains and a special stain are performed on the cell block: (Block A1) Calretinin: highlights scattered mesothelial cells CD68: stains the numerous histiocytes [place]-EP4: non-reactive GMS: no convincing fungal organisms identified (TIMOTHYW:; d/t: 04/02/2017) PATHOLOGIST: Justine Vila M.D. REPORT ELECTRONICALLY SIGNED BY: Justine Vila M.D. DATE/TIME: 04/02/2017 16:00 * * * * * * * * * * * * GROSS PATHOLOGY: Pleural fluid: The specimen is submitted unfixed, labeled "Nannette Still". Received by the Cytology Department is 20 mL of clear yellow fluid. One ThinPrep slide and a cell block were prepared. (mm 03.31.2017) PIT SHOVELER(S): MYLES Francis([facility])IAC INITIAL CPT CODE(S): A; 72040, 38429, 16088, 71162, 04696, 12893 [facility] by [facility] at [address] , [place] [address] [address] CYTO-NONGYN REPORT PROCEDURE Name: NANNETTE STILL Room #: 247-P ADM IN M.R.#: [id number] Admission: 03/29/17 Date of : 34 Discharge: Report #: [id number] Path Case #: [id number] Technical services performed by [facility] at [address] [place] [address]., [address], [place] [address]. [address], [address] [place] [address] PHONE: [phone] DIRECTOR: Foster Clark M.D. * * * END OF REPORT * * *
--- NOTE | ~2017-03-29 | EKG ---
[address] [place] [address] ELECTROCARDIOGRAM REPORT Name: ARMANDO STILL Room #: 436-P ADM IN M.R.#: [id number] Admission: 03/29/17 Attend Phys: Young oLpez MD Discharge: Date of : 34 Report #: [id number] THIS REPORT FOR: //name// [facility] ED Test Date: 2017-03-29 Test Time: 11:25:45 Pat Name: ARMANDO STILL Department: Room: [facility] Gender: F Recycle Driver: CARLOS : 1935 Requested By: Deepthi Pereira Order Number: [id number] MD: Sergey Whitney Measurements Intervals [place] Rate: 79 P: 10 PA: 181 QRS: 5 QRSD: 101 T: 155 QT: 409 QTc: 469 Interpretive Statements Sinus rhythm LVH with secondary repolarization abnormality Compared to ECG 12/08/2016 15:46:42 No significant changes Electronically Signed On 03-30-2017 12:48:38 CDT by Sergey Whitney [email or web address] <ELECTRONICALLY SIGNED> By: Sergey Whtiney MD 03/30/17 1248 1125 1125 Sergey Whitney MD /KASSANDRA
--- NOTE | ~2017-03-29 | H ---
[facility] [place] [address] HISTORY AND PHYSICAL Name: ARMANDO STILL Room #: 436-P ADM IN M.R.#: [id number] Admission: 03/29/17 Attend Phys: Young Lopez MD Discharge: Date of : 34 Report #: [id number] THIS REPORT FOR: //name// CC: Young Reyes DATE OF SERVICE: 03/29/2017 REASON FOR ADMISSION: Dyspnea. HISTORY OF PRESENT ILLNESS: The patient is a pleasant 81-year-old female. She is presently on treatment with Dr. Barahona for disseminated histoplasmosis. She completed a course of amphotericin B subsequently. She is presently on itraconazole. She has had trouble with lower extremity edema and dyspnea, hence notified her primary retail beauty specialist, Dr. Coyne, who prescribed a dose of Lasix and potassium. Unfortunately, she presented to the emergency room before any of these medications could be taken. In the emergency room, she was also noted to have a low-grade fever and possibly UTI and is being admitted for further workup and treatment of her symptoms. When seen by me today, she feels comfortable, except for some mild dyspnea and really has no other significant complaints. She denies nausea, vomiting, diarrhea, dizziness, headaches, skin rashes or other problems at this time. PAST MEDICAL HISTORY: Includes: 1. Disseminated histoplasmosis. 2. Abdominal aortic aneurysm. 3. COPD. 4. Hypertension. 5. Hypothyroidism. 6. CKD 3. 7. Monoclonal gammopathy. 8. Hyperlipidemia. 9. Peripheral vascular disease. PAST SURGICAL HISTORY: Includes: 1. Right renal artery stent. 2. Bilateral iliac stent. 3. Hysterectomy. 4. Left carotid endarterectomy. 5. Right carotid endarterectomy in October of this year. 6. Oral surgery with maxillary extraction. ALLERGIES: Reported to NEOSPORIN. MEDICATIONS: Refer to reconciliation note. [facility] [address] [place] [address] HISTORY AND PHYSICAL Name: ARMANDO STILL Room #: 436-P [facility] IN [facility]#: [id number] Admission: 03/29/17 Attend Phys: Young Lopez MD Discharge: Date of : 34 Report #: [id number] SOCIAL HISTORY: Former smoker, quit recently this year, was smoking up to 1-1/2 packs a day for 65 years. No alcohol or drug use. FAMILY HISTORY: Sister has IBS. Mother had an MO at age 47. Father had an MO at age 70. REVIEW OF SYSTEMS: Twelve-point review of systems performed, negative except as mentioned in the history of present illness. PHYSICAL EXAMINATION: VITAL SIGNS: Afebrile. Pulse of 82, respiratory rate of 16, O2 sat 92% on 3 liters and blood pressure 160/70. GENERAL EXAMINATION: Awake, alert, in no acute distress. HEENT: Unremarkable. NECK: No JVD or thyromegaly. CARDIOVASCULAR: S1, S2 present. Regular. Loud ejection systolic murmur auscultated. RESPIRATORY: Air entry present bilaterally. No significant wheezing, rhonchi or rales, diminished at bilateral bases. ABDOMEN: Soft, nontender. EXTREMITIES: Without edema. NEUROLOGIC: Awake, alert. No gross focal findings. SKIN: Unremarkable. No rash or lesions. LABS AND INVESTIGATIONS: CBC with low anemia of 8.8, otherwise unremarkable. Blood gas with hypoxia, pO2 of 60, pCO2 within normal range. Chemistry with hypokalemia with potassium 3.0, creatinine is 1.9. Albumin low at 2.7. Urinalysis with urine bacteria noted and 6-15 wbc's. Imaging with a chest x-ray appears to demonstrate right lower lobe infiltrate and small pleural effusion as well as mild left infrahilar infiltrate and scarring. Abdominal and pelvis CT with cholelithiasis, bilateral adrenal enlargement, which is improved and abdominal aortic 5.5 cm aneurysm, which is unchanged. ASSESSMENT AND PLAN: This is an 81-year-old female who presented with dyspnea. 1. Dyspnea. I suspect this primarily is a result of volume and pleural effusions. It is not possible to completely rule out an infectious etiology and hospital community-acquired pneumonia and she has been started on treatment for the same in the emergency room. We will follow culture results as well as ID input to see if these can be tapered. We will also attempt diuresis once her potassium levels are corrected. 2. Hypokalemia, possibly in the setting of adrenal lesions as well as recent diuretic use. Replete prior to diuresis. 3. Anemia of chronic disease, stable at baseline. 4. Disseminated histoplasmosis. Continue itraconazole. 5. Urinary tract infection. Follow cultures. Broad-spectrum antibiotic coverage is initiated. [address] [address] HISTORY AND PHYSICAL Name: ARMANDO STILL Room #: 436- ADM IN M.R.#: [id number] Admission: 03/29/17 Attend Phys: Young Lopez MD Discharge: Date of : 34 Report #: [id number] 6. Deep venous thrombosis prophylaxis with low-dose Lovenox. 7. Abdominal aortic aneurysm, stable in size at the present monitor. <ELECTRONICALLY SIGNED> By: Young Lopez MD 03/30/17 1651 1546 1637 Young Lopez MD /nt
--- NOTE | ~2017-03-29 | 2DMMODE ---
[facility] [address] [facility] [place] [address] 2 D/M-MODE ECHOCARDIOGRAM Name: ARMANDO STILL Room #: 436-P ADM IN M.R.#: [id number] Admission: 03/29/17 Attend Phys: Young Lopez, Discharge: Date of : 33 Date of Service: 03/30/17 1440 Report #: [id number] THIS REPORT FOR: //name// APPROVED REPORT Study performed: 03/30/2017 10:02:32 EXAM: Comprehensive 2D, Doppler, and color-flow Echocardiogram Patient Location: Bedside Room #: 436 Status: routine Other Information Study Quality: Adequate Indications Dyspnea Hx: COPD, PVD, HTN 2D Dimensions RVDd: 30.25 mm LVEF(%): 75.44 (>50%) IVSd: 14.94 (7-11mm) LVOT Diam: 21.03 (18-24mm) LVDd: 45.97 mm PWd: 13.36 (7-11mm) Ascending Ao: 31.21 (22-36mm) LVDs: 25.68 (25-40mm) Aortic Root: 32.29 mm Carlson's LVEF: 75.44 % Volumes Left Atrial Volume (Systole) Single Plane 4CH: 67.30 mL Single Plane 2CH: 77.82 mL LA ESV Index: 45.00 mL/m2 LV Strain GL Strain(%): 0.00 Aortic Valve AoV Peak Massimo.: 3.25 m/s AO Peak Gr.: 42.22 mmHg LVOT Max P.27 mmHg AO Mean Gr.: 24.84 mmHg AO V2 Mean: 2.39 m/s LVOT Max V: 1.60 m/s AO V2 VTI: 64.57 cm TESFAYE Vmax: 1.71 cm2 Mitral Valve [facility] [place] [address] 2 D/M-MODE ECHOCARDIOGRAM Name: ARMANDO STILL BERNARDINO Room #: 436-P [facility] IN M.R.#: [id number] Admission: 03/29/17 Attend Phys: Young Lopez, Discharge: Date of : 33 Date of Service: 03/30/17 1440 Report #: [id number] E/A Ratio: 1.0 MV Decel. Time: 268.20 ms MV E Max Massimo.: 1.38 m/s MV A Massimo.: 1.45 m/s MV PHT: 77.78 ms IVRT: 32.30 ms Pulmonary Valve PV Peak Massimo.: 1.45 m/s PV Peak Gr.: 8.44 mmHg Pulmonary Vein P Vein S: 0.71 m/s P Vein A: 0.41 m/s P Vein D: 0.68 m/s P Vein A Dur.: 86.5 msec P Vein S/D Ratio: 1.04 Tricuspid Valve TR Peak Massimo.: 3.18 m/s RAP Estimate: 10.00 mmHg TR Peak Gr.: 40.34 mmHg PA Pressure: 50.00 mmHg Left Ventricle The left ventricle is normal size. Moderate concentric left ventricular hypertrophy. Left ventricular systolic function is hyperdynamic. LVEF is 65-70%. LV gradient noted with a peak velocity of 3.2m/s and a PPG of 43mmHg. With valsalva the PPG increases to 57mmHg. Mild diastolic dysfunction is present (impaired relaxation pattern). Right Ventricle The right ventricle is normal size. The right ventricular systolic function is normal. Atria Left atrium is dilated. The right atrium size is normal. Aortic Valve Aortic valve is moderately calcified. No aortic regurgitation is present. There is mild to moderate valvular aortic stenosis. Calculated aortic valve area is 1.7 cm2 with maximum pressure gradient of 42 mmHg and mean pressure gradient of 25 mmHg. Mitral Valve Mitral valve leaflets are thickened. Mild mitral annular calcification. Moderate mitral regurgitation [place] [address] 2 D/M-MODE ECHOCARDIOGRAM Name: ARMANDO STILL Room #: 436-P ADM IN M.R.#: [id number] Admission: 03/29/17 Attend Phys: Young Lopez, Discharge: Date of : 33 Date of Service: 03/30/17 1440 Report #: [id number] Tricuspid Valve The tricuspid valve is normal in structure. There is trivial tricuspid regurgitation. The right atrial pressure is estimated at 10 mmHg. There is moderate pulmonary hypertension with an estimated PAP of 50mmHg. Pulmonic Valve The pulmonary valve is normal in structure. Trace pulmonic regurgitation. Great Vessels The aortic root is normal in size. The ascending aorta is normal in size. IVC is dilated and collapses <50% with inspiration. Pericardium Hemodynamically insignificant pericardial effusion noted. Right pleural effusion noted. <Conclusion> The left ventricle is normal size. Moderate concentric left ventricular hypertrophy. LVEF is 65-70%. LV gradient noted with a peak velocity of 3.2m/s and a PPG of 43mmHg. With valsalva the PPG increases to 57mmHg. Left atrium is dilated. Aortic valve is moderately calcified. There is mild to moderate valvular aortic stenosis. Calculated aortic valve area is 1.7 cm2 with maximum pressure gradient of 42 mmHg and mean pressure gradient of 25 mmHg. Mitral valve leaflets are thickened. Mild mitral annular calcification. Moderate mitral regurgitation with an eccentric jet. The tricuspid valve is normal in structure. There is trivial tricuspid regurgitation. The right atrial pressure is estimated at 10 mmHg. There is moderate pulmonary hypertension with an estimated PAP of 50mmHg. The pulmonary valve is normal in structure. Trace pulmonic regurgitation. Hemodynamically insignificant pericardial effusion noted. Right pleural effusion noted. <ELECTRONICALLY SIGNED> By: Juan Luis Wong MD 03/30/17 1440 1440 144 Juan Luis Wong MD /INF
--- NOTE | ~2017-03-29 | HC ---
[facility] [place] [address] CONSULTATION Name: ARMANDO STILL Room #: 436-P ADM IN M.R.#: [id number] Admission: 03/29/17 Attend Phys: Young Lopez MD Discharge: Date of : 34 Report #: [id number] THIS REPORT FOR: //name// CC: Young Reyes REASON FOR CONSULTATION: I was asked to evaluate concerning shortness of breath, right lower lobe infiltrate in the setting of disseminating histoplasmosis. 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 She had involvement of mucous membranes, bilateral adrenal glands, bone marrow, likely pancreas. Treated with amphotericin for a month, now on itraconazole. She has been tolerating it reasonably well with an itraconazole level of 1.4 checked earlier this month. She has had peripheral edema issues. Last check in the outpatient clinic on 03/18/2017, she was doing reasonably well. She was maintaining her weight. Appetite was good. No significant dyspnea recorded. Over the past week, she has had progressive shortness of breath. She has noticed increased peripheral edema. Trial of Lasix did not improve her symptoms and she was hospitalized through the Emergency Room. She has had intermittent cough with clear sputum production. No documented fever, no reported chills or sweats. Denies any pleuritic chest pain. No nausea, vomiting or diarrhea. PAST MEDICAL AND SURGICAL HISTORY: Disseminating histoplasmosis, abdominal aortic aneurysm, COPD, hypertension, hypothyroidism, chronic kidney disease, monoclonal gammopathy, hyperlipidemia, peripheral vascular disease with a renal artery stent, she has bilateral iliac stents, she has had hysterectomy, left carotid endarterectomy, right carotid endarterectomy, oral surgery with maxillary extraction. FAMILY HISTORY: Noncontributory. SOCIAL HISTORY: Past smoker, no significant alcohol intake. ALLERGIES: NEOSPORIN. MEDICATIONS: As noted on DEC, given vancomycin, Zosyn and Levaquin through the Emergency Room. REVIEW OF SYSTEMS: Negative, other than described above. PHYSICAL EXAMINATION: VITAL SIGNS: Afebrile, hemodynamically stable. GENERAL: She is alert and cooperative and pleasant, on 6 liters of oxygen per nasal cannula. 1+ peripheral edema in the lower extremities. 2+ in her feet. [address] [address] CONSULTATION Name: ARMANDO STILL Room #: [address] [place] [address] IN M.R.#: [id number] Admission: 03/29/17 Attend Phys: Young Lopez MD Discharge: Date of : 34 Report #: [id number] HEENT: Unremarkable. Her oral lesion has healed. NECK: Supple. JVD increased. LUNGS: Decreased breath sounds mostly on the right base. HEART: Regular, without gallop or rub. ABDOMEN: Soft, nontender, no hepatosplenomegaly or mass appreciated. NEUROLOGIC: Nonfocal. LABORATORY STUDIES: Hemoglobin 8.5, WBC 4.5, platelet count 193,000. Differential was unremarkable. Sodium 143, potassium 3.1, bicarbonate 26, creatinine 2.1. MRSA screen negative. CT scan of the abdomen did show moderate right effusion with atelectasis. The adrenal glands markedly improved from previous. No change in her abdominal aortic aneurysm of 5.5 cm. Chest x-ray shows basilar infiltrate on the right with associated effusion. Urinalysis, few wbc's, moderate bacteria. Blood and urine cultures are pending. ABG on 2 liters showed a pO2 of 60, pCO2 of 39, pH 7.45. IMPRESSION: An 81-year-old with disseminating histoplasmosis, 3 months into her treatment program, now on itraconazole. She presents with shortness of breath, I suspect predominantly fluid shift. May still have right lower lobe pneumonia, community acquired. I doubt pulmonary embolism. PLAN: Recommend obtaining cultures of blood and sputum. Do urine antigens. Ask Cardiology to assist with further diuresis. We will continue itraconazole at her current dose for her level was in normal range on twice a day dosing. Anticipate one year of antifungal treatment. <ELECTRONICALLY SIGNED> By: Alberto Barahona MD 03/30/17 1707 0907 1034 Alberto Barahona MD /nt
--- NOTE | ~2017-03-29 | EKG ---
[place] [address] [facility] [place] [address] ELECTROCARDIOGRAM REPORT Name: ARMANDO STILL Room #: 244-P ADM IN M.R.#: [id number] Admission: 03/29/17 Attend Phys: Young Lopez MD Discharge: Date of : 34 Report #: [id number] THIS REPORT FOR: //name// [facility] Test Date: 2017-04-11 Test Time: 10:51:36 Pat Name: ARMANDO STILL Department: Room: Count includes the [facility] Gender: F Effervescent Salts Compounder: veronika : 1935 Requested By: Delonte Murrell Order Number: [id number] MD: Sarbjit Cherry Measurements Intervals [place] Rate: 72 P: 40 [place]: 170 QRS: 1 QRSD: 96 T: 113 QT: 420 QTc: 460 Interpretive Statements Sinus rhythm Ventricular premature complex Probable left atrial enlargement LVH with secondary repolarization abnormality Compared to ECG 03/29/2017 11:25:45 Ventricular premature complex(es) now present Electronically Signed On 04-12-2017 8:41:03 CDT by Sarbjit Cherry [email or web address] <ELECTRONICALLY SIGNED> By: Sarbjit Cherry MD, [facility] 04/12/17 0841 1051 1051 Sarbjit Cherry MD, [facility] /EPI
--- NOTE | ~2017-03-29 | HC ---
[facility] [address] CONSULTATION Name: ARMANDO STILL Room #: 247-P ADM IN M.R.#: [id number] Admission: 03/29/17 Attend Phys: Young Lopez MD Discharge: Date of : 34 Report #: [id number] THIS REPORT FOR: //name// CC: Young Lopez Bouchra Reyes DATE OF SERVICE: 03/30/2017 REASON FOR CONSULTATION: Hypoxemic respiratory failure. IMPRESSION: 1. Hypoxemic respiratory failure, acute. 2. History of disseminated histoplasmosis. 3. Bilateral pleural effusions. 4. Aalry-ea-sckoypj diastolic congestive heart failure. 5. Urinary tract infection. 6. Anemia. 7. History of chronic obstructive pulmonary disease. PLAN: 1. Antibiotics per ID. The right lung was tapped today, may tap left in a.m. if significant effusion. 2. May check V/Q scan at some point. 3. We will need followup of pulmonary nodule. HISTORY OF PRESENT ILLNESS: Very pleasant 81-year-old female who comes in with fever, increasing lower extremity edema, cough and shortness of breath. This was getting better; however, this morning, took a turn starting last night actually. She denies aspiration. She relates her legs have actually gotten better. Chest x-ray worsened and tap was ordered. She is doing better this evening when seen. CURRENT MEDICATIONS: Include amlodipine, Plavix, Synthroid, atorvastatin, Lovenox, itraconazole, Lasix and DuoNeb. FAMILY HISTORY: Noncontributory. SOCIAL HISTORY: Positive tobacco in the past. Negative significant ETOH. ALLERGIES: NEOSPORIN. REVIEW OF SYSTEMS: Disseminated histoplasmosis, abdominal aortic aneurysm, COPD, hypertension, hypothyroidism, CKD, monoclonal gammopathy, hyperlipidemia and peripheral vascular disease with a renal artery stent. PAST SURGICAL HISTORY: Surgeries include bilateral iliac stents, hysterectomy, [facility] [address] [place] [address] CONSULTATION Name: ARMANDO STILL Room #: 247-P [facility].#: [id number] Admission: 03/29/17 Attend Phys: Young Lopez MD Discharge: Date of : 34 Report #: [id number] left and right carotid endarterectomy and oral surgery with maxillary extraction. PHYSICAL EXAMINATION: VITAL SIGNS: Temperature 98.9, pulse 85, respirations 22 and BP 126/51. EYES: Negative icterus. NECK: Negative JVD. LUNGS: Decreased breath sounds bilaterally, coarse. HEART: ____. Tachy. ABDOMEN: Bowel sounds present. EXTREMITIES: Showed positive edema. Moved all extremities. NEUROLOGIC: Alert and oriented. Discussed with family in the room. DIAGNOSTIC DATA: Chest x-ray showed improvement after 1.15-liter thoracentesis. CT chest was reviewed and showed resolution of right pleural effusion; bibasilar atelectasis; infiltrate, left greater than right; epsmy-yr-qgrsdjcd left effusion and pulmonary interstitial markings. Pleural-based 8-mm nodule ____. DICTATION ENDS HERE. By: 2039 0031 Lalitha Weber MD /nt
--- NOTE | ~2017-03-29 | CNG ---
[facility] [place] [address] CYTO-NONGYN REPORT PROCEDURE Name: NANNETTE STILL Room #: 244-P ADM IN M.R.#: [id number] Admission: 03/29/17 Date of : 33 Discharge: Report #: [id number] Path Case #: [id number] CYTOPATHOLOGY REPORT COLLECTION DATE: 04/14/2017 RECEIVED DATE: 04/14/2017 SUBMITTING PHYS: Dr. Lalitha Weber OTHER PHYS: Dr. Bouchra Lopez MD CLINICAL HISTORY: Pneumonia, Fever, Lower extremity edema SPECIMEN(S) RECEIVED: A.Sputum * * * * * * * * * * * * FINAL DIAGNOSIS: A. Sputum: - No malignant cells identified. Squamous epithelial cells along with pulmonary macrophages are present. PATHOLOGIST: Faith Metzger M.D. REPORT ELECTRONICALLY SIGNED BY: Faith Metzger M.D. DATE/TIME: 04/15/2017 16:23 * * * * * * * * * * * * GROSS PATHOLOGY: A. Sputum: The specimen is submitted unfixed, labeled "Nannette Still". Received by the Cytology Department is less than one mL of cloudy colorless fluid. One ThinPrep slide was prepared. (mm 04.14.2017) COMPENSATION ANALYST(S): MYLES Hodge(ASCP) INITIAL CPT CODE(S): A; 56158 Professional services performed by [facility] at [facility] [address], [place] [address] Technical services performed by [facility] at [address] [place] [address]., [address], [place] [address]. [facility] [address] [place] [address], [address] [place], [place] [address] [place] [address] [place] [address] CYTO-NONGYN REPORT PROCEDURE Name: NANNETTE STILL Room #: 244-P ADM IN M.R.#: [id number] Admission: 03/29/17 Date of : 34 Discharge: Report #: [id number] Path Case #: [id number] PHONE: [phone] DIRECTOR: Foster Clark M.D. * * * END OF REPORT * * *
--- NOTE | ~2017-03-29 | CNG ---
[facility] [place] [address] CYTO-NONGYN REPORT PROCEDURE Name: NANNETTE STILL Room #: 449-I ADM IN M.R.#: [id number] Admission: 03/29/17 Date of : 33 Discharge: Report #: [id number] Path Case #: [id number] CYTOPATHOLOGY REPORT COLLECTION DATE: 04/15/2017 RECEIVED DATE: 04/15/2017 SUBMITTING PHYS: Dr. Lalitha Weber OTHER PHYS: Dr. Bouchra Lopez MD CLINICAL HISTORY: Pneumonia, fever, lower extremity edema. SPECIMEN(S) RECEIVED: A.Bronchoalveolar lavage, NOS * * * * * * * * * * * * FINAL DIAGNOSIS: A. Bronchoalveolar lavage, NOS: - No malignant cells identified. - Reactive bronchial epithelial cells, abundant hemosiderin-laden macrophages, and occasional squamous epithelial cells present. PATHOLOGIST: Justine Vila M.D. REPORT ELECTRONICALLY SIGNED BY: Justine Vila M.D. DATE/TIME: 04/16/2017 11:54 * * * * * * * * * * * * GROSS PATHOLOGY: A. Bronchoalveolar lavage, NOS: The specimen is submitted unfixed, labeled "Nannette Still". Received by the Cytology Department is 5 mL of cloudy white fluid. One ThinPrep slide was prepared. (clt 04.15.2017) PRINT CUTTER(S): Gui J Frances, CT(ASCP) INITIAL CPT CODE(S): A; 55689 Professional services performed by [facility] at [facility] [address], [place] [address] Technical services performed by [facility] at [address] [place] [address]., [address], [place] [address]. [facility] [address] [place] [address], [address] [facility] [address] [place] [address] CYTO-NONGYN REPORT PROCEDURE Name: NANNETTE STILL Room #: 449-I ADM IN M.R.#: [id number] Admission: 03/29/17 Date of : 34 Discharge: Report #: [id number] Path Case #: [id number] [place] [address] PHONE: [phone] DIRECTOR: Foster Clark M.D. * * * END OF REPORT * * *
[2017-03-29 09:42] VITALS: BP 146/75
[2017-03-29 11:27] LABS: URINE BILIRUBIN NEGATIVE (Negative); URINE BLOOD NEGATIVE (Negative); URINE COLOR YELLOW; URINE GLUCOSE-RANDOM* NEGATIVE (Negative); URINE KETONES NEGATIVE (Negative); URINE NITRITE NEGATIVE (Negative); URINE PROTEIN (DIPSTICK) TRACE (Negative); URINE SPECIFIC GRAVITY 1.015 (1.003-1.035); URINE UROBILINOGEN 0.2 E.U./dl (0.2-1.0)
[2017-03-29 11:39] LABS: CASTS None Seen /LPF (None Seen); SQUAMOUS 4-10 Moderate /LPF (0-3)
[2017-03-29 11:40] LABS: CRYSTALS None Seen /LPF (None Seen); URINE RBC 0-2 Rare /HPF (0-2); URINE WBC 6-15 Few /HPF (0-5)
[2017-03-29 11:57] LABS: ABG SAMPLE TYPE ARTERIAL; BE(vivo) 2.6 mmol/L (-2 to +3); HCO3 26.7 mmol/L (22.0-26.0); LACTATE 0.81 mmol/L (0.5-2.0); O2(CT) 11.9 mL/dL (15.0-23.0); O2Hb 90.5 % (92.0-98.0); PCO2 39.2 mmHg (35.0-45.0); PO2 60.7 mmHg (80.0-100.0); STICK SITE R.RADIAL; pH 7.451 (7.360-7.450); sO2 92.4 % (92.0-98.0); tCO2 27.9 mmol/L (24.0-30.0)
[2017-03-29] MEDS ORDERED: LASIX 40 MG TAB40 M2 PO (12:27)
[2017-03-29] MEDS ORDERED: NORVASC5 MG PO (12:27)
[2017-03-29 12:32] LABS: ABSOLUTE NEUTROPHILS 2.6 thou/uL (1.4-8.2); BASOPHILS 0.3 % (0.0-2.0); HEMATOCRIT 25.8 % (37.0-47.0); HEMOGLOBIN 8.8 gm/dL (12.0-15.0); LYMPHOCYTES 20.6 % (24.0-44.0); MCH 29.7 pg (26.0-34.0); MCV 87.2 fL (80.0-100.0); MONOCYTES 9.9 % (1.0-8.0); PLATELET COUNT 235 thou/uL (150-400); POLYS 63.2 % (36.0-66.0); RBC 2.96 mil/uL (4.20-5.00); RDW 15.8 % (10.5-14.5); WBC 4.1 thou/uL (4.0-11.0)
[2017-03-29 12:33] LABS: MANUAL DIFF NO
[2017-03-29 12:46] LABS: CALCIUM 8.7 mg/dL (8.5-10.1); CREATININE 1.9 mg/dL (0.6-1.0)
[2017-03-29 12:50] LABS: ALBUMIN 2.7 g/dL (3.4-5.0); DIRECT BILIRUBIN 0.3 mg/dL (<0.1-0.3); TOTAL BILIRUBIN 1.2 mg/dL (<0.1-1.0); TOTAL PROTEIN 6.6 g/dL (6.4-8.2)
[2017-03-29 14:14] VITALS: BP 160/70
[2017-03-29 17:16] VITALS: BP 155/56
[2017-03-29 19:20] VITALS: BP 164/58
[2017-03-30 05:24] LABS: HEMATOCRIT 25.6 % (37.0-47.0); HEMOGLOBIN 8.5 gm/dL (12.0-15.0); MCH 28.8 pg (26.0-34.0); MCHC 33.1 g/dL (28.0-37.0); MCV 86.9 fL (80.0-100.0); RBC 2.94 mil/uL (4.20-5.00); RDW 15.7 % (10.5-14.5); WBC 4.5 thou/uL (4.0-11.0)
[2017-03-30 05:33] VITALS: BP 145/44
[2017-03-30 05:35] LABS: CALCIUM 8.2 mg/dL (8.5-10.1); CREATININE 2.1 mg/dL (0.6-1.0); POTASSIUM 3.1 mmol/L (3.5-5.1)
[2017-03-30 09:04] VITALS: BP 162/60
[2017-03-30 16:47] VITALS: BP 165/62
[2017-03-30 19:11] VITALS: BP 158/67
[2017-03-31] VITALS (32 sets, daily range): BP systolic 119–160; BP diastolic 47–80
[2017-03-31 05:25] LABS: HEMATOCRIT 26.5 % (37.0-47.0); HEMOGLOBIN 8.7 gm/dL (12.0-15.0); MCH 28.6 pg (26.0-34.0); MCV 86.7 fL (80.0-100.0); RBC 3.05 mil/uL (4.20-5.00); RDW 15.9 % (10.5-14.5); WBC 6.1 thou/uL (4.0-11.0)
[2017-03-31 05:42] LABS: CALCIUM 8.6 mg/dL (8.5-10.1); POTASSIUM 3.5 mmol/L (3.5-5.1)
[2017-03-31 09:34] LABS: ABG SAMPLE TYPE ARTERIAL; BE(vivo) 4.6 mmol/L (-2 to +3); HCO3 29.1 mmol/L (22.0-26.0); LACTATE 1.43 mmol/L (0.5-2.0); O2(CT) 11.5 mL/dL (15.0-23.0); O2Hb 85.3 % (92.0-98.0); PCO2 42.9 mmHg (35.0-45.0); PO2 49.3 mmHg (80.0-100.0); STICK SITE L.BRACHIAL; pH 7.449 (7.360-7.450); sO2 86.4 % (92.0-98.0); tCO2 30.4 mmol/L (24.0-30.0)
[2017-03-31 09:35] LABS: Face Shield 50 %
[2017-03-31 12:58] LABS: APTT 29.8 Seconds (24.5-32.8); INR 1.2; PROTIME 12.2 Seconds (9.3-11.4)
[2017-03-31 14:03] LABS: URINE BILIRUBIN NEGATIVE (Negative); URINE BLOOD NEGATIVE (Negative); URINE COLOR YELLOW; URINE GLUCOSE-RANDOM* NEGATIVE (Negative); URINE KETONES NEGATIVE (Negative); URINE LEUKOCYTES-REFLEX NEGATIVE (Negative); URINE PROTEIN (DIPSTICK) NEGATIVE (Negative); URINE UROBILINOGEN 0.2 E.U./dl (0.2-1.0)
[2017-03-31 15:34] LABS: BF NUCLEATED CELLS 68; BF RBC 602
[2017-03-31 15:35] LABS: CLARITY CLOUDY; COLOR YELLOW; TOTAL VOLUME 60 mL
[2017-03-31 16:29] LABS: BF NEUTROPHILS 16; MANUAL DIFF YES
[2017-03-31 16:30] LABS: BF MACROPHAGE 14
[2017-04-01] VITALS (46 sets, daily range): BP systolic 122–169; BP diastolic 50–73
[2017-04-01 00:10] LABS: BODY FLUID ALBUMIN 0.8 g/dL (())
[2017-04-01 02:43] LABS: HEMATOCRIT 25.4 % (37.0-47.0); HEMOGLOBIN 8.3 gm/dL (12.0-15.0); MCH 28.4 pg (26.0-34.0); MCHC 32.6 g/dL (28.0-37.0); RBC 2.92 mil/uL (4.20-5.00); RDW 16.4 % (10.5-14.5); WBC 4.7 thou/uL (4.0-11.0)
[2017-04-01 02:53] LABS: CALCIUM 8.4 mg/dL (8.5-10.1); CREATININE 2.3 mg/dL (0.6-1.0)
[2017-04-01 02:54] LABS: POTASSIUM 4.2 mmol/L (3.5-5.1)
[2017-04-01 14:11] LABS: BODY FLUID AMYLASE 15 U/L (()); BODY FLUID GLUCOSE 116 mg/dL (()); BODY FLUID LDH 88 IU/L (()); BODY FLUID PROTEIN 1.5 g/dL (())
[2017-04-01 18:11] LABS: CALCIUM 8.1 mg/dL (8.5-10.1); CREATININE 2.4 mg/dL (0.6-1.0)
[2017-04-01 18:12] LABS: POTASSIUM 3.1 mmol/L (3.5-5.1)
[2017-04-02] VITALS (33 sets, daily range): BP systolic 119–158; BP diastolic 52–94
[2017-04-02 04:04] LABS: CALCIUM 8.4 mg/dL (8.5-10.1); CREATININE 2.3 mg/dL (0.6-1.0); POTASSIUM 3.9 mmol/L (3.5-5.1)
[2017-04-02 04:08] LABS: HEMATOCRIT 26.4 % (37.0-47.0); HEMOGLOBIN 8.6 gm/dL (12.0-15.0); MCH 28.4 pg (26.0-34.0); MCHC 32.5 g/dL (28.0-37.0); MCV 87.3 fL (80.0-100.0); RBC 3.02 mil/uL (4.20-5.00); RDW 16.2 % (10.5-14.5); WBC 4.6 thou/uL (4.0-11.0)
[2017-04-02 05:26] LABS: ABG SAMPLE TYPE ARTERIAL; BE(vivo) 2.8 mmol/L (-2 to +3); HCO3 28.2 mmol/L (22.0-26.0); LACTATE 1.12 mmol/L (0.5-2.0); O2(CT) 12.5 mL/dL (15.0-23.0); O2Hb 95.5 % (92.0-98.0); PCO2 47.2 mmHg (35.0-45.0); PO2 86.1 mmHg (80.0-100.0); STICK SITE L.RADIAL; pH 7.394 (7.360-7.450); sO2 96.4 % (92.0-98.0); tCO2 29.6 mmol/L (24.0-30.0)
[2017-04-02 05:27] LABS: FIO2 60 %; Pressure Support 12 cm H20
[2017-04-02 16:01] LABS: BF NUCLEATED CELLS 967; BF RBC 517; CLARITY HAZY; COLOR YELLOW; TOTAL VOLUME 60 mL
[2017-04-02 19:08] LABS: BF MACROPHAGE 40; BF NEUTROPHILS 51; MANUAL DIFF YES
[2017-04-03] VITALS (24 sets, daily range): BP systolic 92–153; BP diastolic 50–67
[2017-04-03 04:39] LABS: HEMATOCRIT 24.7 % (37.0-47.0); HEMOGLOBIN 8.1 gm/dL (12.0-15.0); MCH 28.4 pg (26.0-34.0); MCHC 32.8 g/dL (28.0-37.0); MCV 86.7 fL (80.0-100.0); RBC 2.85 mil/uL (4.20-5.00); RDW 15.9 % (10.5-14.5); WBC 4.6 thou/uL (4.0-11.0)
[2017-04-03 04:49] LABS: CALCIUM 8.3 mg/dL (8.5-10.1); CREATININE 2.3 mg/dL (0.6-1.0); POTASSIUM 3.5 mmol/L (3.5-5.1)
[2017-04-03 05:31] LABS: ABG SAMPLE TYPE ARTERIAL; BE(vivo) 4.7 mmol/L (-2 to +3); Face Shield 35 %; HCO3 30.3 mmol/L (22.0-26.0); LACTATE 1.86 mmol/L (0.5-2.0); O2(CT) 9.3 mL/dL (15.0-23.0); PCO2 52.3 mmHg (35.0-45.0); PO2 69.1 mmHg (80.0-100.0); STICK SITE L.RADIAL; pH 7.381 (7.360-7.450); sO2 93.3 % (92.0-98.0); tCO2 31.9 mmol/L (24.0-30.0)
[2017-04-04] VITALS (24 sets, daily range): BP systolic 128–150; BP diastolic 49–68
[2017-04-04 02:05] LABS: BODY FLUID ALBUMIN 1.1 g/dL (()); BODY FLUID AMYLASE 21 U/L (()); BODY FLUID GLUCOSE 139 mg/dL (()); BODY FLUID LDH 123 IU/L (()); BODY FLUID PROTEIN 1.9 g/dL (())
[2017-04-04 07:20] LABS: ABSOLUTE NEUTROPHILS 3.1 thou/uL (1.4-8.2); BASOPHILS 1.2 % (0.0-2.0); EOSINOPHILS 6.8 % (0.0-3.0); HEMATOCRIT 25.1 % (37.0-47.0); HEMOGLOBIN 8.3 gm/dL (12.0-15.0); LYMPHOCYTES 12.7 % (24.0-44.0); MCH 28.3 pg (26.0-34.0); MCHC 33.2 g/dL (28.0-37.0); MCV 85.4 fL (80.0-100.0); MONOCYTES 8.2 % (1.0-8.0); PLATELET COUNT 213 thou/uL (150-400); POLYS 71.1 % (36.0-66.0); RBC 2.94 mil/uL (4.20-5.00); RDW 15.7 % (10.5-14.5); WBC 4.3 thou/uL (4.0-11.0)
[2017-04-04 07:22] LABS: MANUAL DIFF NO
[2017-04-04 07:29] LABS: CALCIUM 8.7 mg/dL (8.5-10.1); CREATININE 2.1 mg/dL (0.6-1.0); POTASSIUM 3.4 mmol/L (3.5-5.1)
[2017-04-05] VITALS (10 sets, daily range): BP systolic 107–151; BP diastolic 46–62
[2017-04-05 04:25] LABS: ABSOLUTE NEUTROPHILS 3.1 thou/uL (1.4-8.2); BASOPHILS 1.3 % (0.0-2.0); HEMATOCRIT 27.2 % (37.0-47.0); HEMOGLOBIN 8.9 gm/dL (12.0-15.0); LYMPHOCYTES 13.9 % (24.0-44.0); MCH 28.1 pg (26.0-34.0); MCHC 32.6 g/dL (28.0-37.0); MCV 86.2 fL (80.0-100.0); MONOCYTES 9.4 % (1.0-8.0); PLATELET COUNT 232 thou/uL (150-400); POLYS 68.4 % (36.0-66.0); RBC 3.15 mil/uL (4.20-5.00); RDW 15.7 % (10.5-14.5); WBC 4.5 thou/uL (4.0-11.0)
[2017-04-05 04:27] LABS: MANUAL DIFF NO
[2017-04-05 04:31] LABS: CALCIUM 8.7 mg/dL (8.5-10.1); CREATININE 2.3 mg/dL (0.6-1.0); POTASSIUM 3.4 mmol/L (3.5-5.1)
[2017-04-06 04:10] VITALS: BP 137/55
[2017-04-06 06:04] LABS: ABSOLUTE NEUTROPHILS 2.9 thou/uL (1.4-8.2); BASOPHILS 1.3 % (0.0-2.0); EOSINOPHILS 7.3 % (0.0-3.0); HEMATOCRIT 27.8 % (37.0-47.0); HEMOGLOBIN 9.1 gm/dL (12.0-15.0); LYMPHOCYTES 16.7 % (24.0-44.0); MCH 28.1 pg (26.0-34.0); MCHC 32.7 g/dL (28.0-37.0); MCV 85.9 fL (80.0-100.0); MONOCYTES 9.1 % (1.0-8.0); PLATELET COUNT 261 thou/uL (150-400); POLYS 65.6 % (36.0-66.0); RBC 3.23 mil/uL (4.20-5.00); RDW 15.9 % (10.5-14.5); WBC 4.5 thou/uL (4.0-11.0)
[2017-04-06 06:06] LABS: MANUAL DIFF NO
[2017-04-06 06:22] LABS: CALCIUM 8.7 mg/dL (8.5-10.1); CREATININE 2.4 mg/dL (0.6-1.0); MAGNESIUM 1.9 mg/dL (1.8-2.4); POTASSIUM 3.7 mmol/L (3.5-5.1)
[2017-04-06 07:21] LABS: ABG SAMPLE TYPE ARTERIAL; BE(vivo) 5.8 mmol/L (-2 to +3); HCO3 30.7 mmol/L (22.0-26.0); LACTATE 1.65 mmol/L (0.5-2.0); O2(CT) 12.1 mL/dL (15.0-23.0); O2Hb 87.3 % (92.0-98.0); PCO2 46.4 mmHg (35.0-45.0); PO2 56.6 mmHg (80.0-100.0); STICK SITE L.RADIAL; pH 7.438 (7.360-7.450); sO2 90.2 % (92.0-98.0); tCO2 32.1 mmol/L (24.0-30.0)
[2017-04-06 08:50] VITALS: BP 143/72
[2017-04-06 11:58] VITALS: BP 161/69
[2017-04-06 16:01] VITALS: BP 136/82
[2017-04-06 19:36] VITALS: BP 138/70
[2017-04-07 05:22] LABS: CALCIUM 8.9 mg/dL (8.5-10.1); CREATININE 2.3 mg/dL (0.6-1.0); POTASSIUM 4.6 mmol/L (3.5-5.1)
[2017-04-07 07:32] VITALS: BP 129/56
[2017-04-07 07:34] LABS: ABG SAMPLE TYPE ARTERIAL; BE(vivo) 6.5 mmol/L (-2 to +3); HCO3 30.7 mmol/L (22.0-26.0); LACTATE 1.62 mmol/L (0.5-2.0); O2(CT) 12.2 mL/dL (15.0-23.0); O2Hb 89.3 % (92.0-98.0); PCO2 43.1 mmHg (35.0-45.0); PO2 57.7 mmHg (80.0-100.0); pH 7.471 (7.360-7.450); sO2 91.5 % (92.0-98.0); tCO2 32.1 mmol/L (24.0-30.0)
[2017-04-07 07:36] LABS: STICK SITE L.RADIAL
[2017-04-07 11:29] VITALS: BP 146/70
[2017-04-07 15:12] VITALS: BP 145/73
[2017-04-07 19:07] VITALS: BP 142/64
[2017-04-08 04:17] VITALS: BP 137/60
[2017-04-08 07:23] VITALS: BP 120/57
[2017-04-08 11:35] VITALS: BP 128/63
[2017-04-08 19:40] VITALS: BP 134/48
[2017-04-09] VITALS (7 sets, daily range): BP systolic 74–149; BP diastolic 49–65
[2017-04-10 04:05] VITALS: BP 124/59
[2017-04-10 04:09] LABS: CALCIUM 9.2 mg/dL (8.5-10.1); CREATININE 2.5 mg/dL (0.6-1.0); MAGNESIUM 2.1 mg/dL (1.8-2.4); POTASSIUM 4.1 mmol/L (3.5-5.1)
[2017-04-10 04:23] LABS: ABSOLUTE NEUTROPHILS 4.2 thou/uL (1.4-8.2); EOSINOPHILS 6.8 % (0.0-3.0); HEMATOCRIT 26.6 % (37.0-47.0); HEMOGLOBIN 8.6 gm/dL (12.0-15.0); LYMPHOCYTES 11.8 % (24.0-44.0); MCH 27.9 pg (26.0-34.0); MCHC 32.4 g/dL (28.0-37.0); MCV 86.1 fL (80.0-100.0); MONOCYTES 7.2 % (1.0-8.0); PLATELET COUNT 292 thou/uL (150-400); POLYS 73.2 % (36.0-66.0); RBC 3.09 mil/uL (4.20-5.00); RDW 15.9 % (10.5-14.5); WBC 5.8 thou/uL (4.0-11.0)
[2017-04-10 04:24] LABS: MANUAL DIFF NO
[2017-04-10 07:44] VITALS: BP 149/63
[2017-04-10 12:21] VITALS: BP 141/55
[2017-04-10 16:25] VITALS: BP 125/55
[2017-04-10 19:12] VITALS: BP 153/57
[2017-04-10 20:26] LABS: ABG SAMPLE TYPE ARTERIAL; BE(vivo) 3.2 mmol/L (-2 to +3); HCO3 28.6 mmol/L (22.0-26.0); LACTATE 1.38 mmol/L (0.5-2.0); O2(CT) 13.1 mL/dL (15.0-23.0); O2Hb 89.9 % (92.0-98.0); PCO2 47.8 mmHg (35.0-45.0); PO2 61.6 mmHg (80.0-100.0); STICK SITE R.RADIAL; pH 7.395 (7.360-7.450); sO2 91.3 % (92.0-98.0); tCO2 30.1 mmol/L (24.0-30.0)
[2017-04-10 20:27] LABS: FIO2 50 %
[2017-04-11] VITALS (20 sets, daily range): BP systolic 117–155; BP diastolic 44–62
[2017-04-11 05:10] LABS: CREATININE 2.5 mg/dL (0.6-1.0); MAGNESIUM 2.1 mg/dL (1.8-2.4); POTASSIUM 4.1 mmol/L (3.5-5.1)
[2017-04-11 10:01] LABS: APTT 26.1 Seconds (24.5-32.8); PROTIME 10.6 Seconds (9.3-11.4)
[2017-04-11 15:04] LABS: ABG SAMPLE TYPE ARTERIAL; BE(vivo) -1.5 mmol/L (-2 to +3); HCO3 24.1 mmol/L (22.0-26.0); LACTATE 1.43 mmol/L (0.5-2.0); O2(CT) 10.8 mL/dL (15.0-23.0); O2Hb 89.7 % (92.0-98.0); PCO2 45.1 mmHg (35.0-45.0); PO2 61.9 mmHg (80.0-100.0); pH 7.346 (7.360-7.450); sO2 90.4 % (92.0-98.0); tCO2 25.5 mmol/L (24.0-30.0)
[2017-04-11 15:05] LABS: ABG COMMENT NO COMPLICATIONS.; STICK SITE R.RADIAL
[2017-04-12] VITALS (18 sets, daily range): BP systolic 110–153; BP diastolic 22–89
[2017-04-12 03:32] LABS: ABSOLUTE NEUTROPHILS 3.7 thou/uL (1.4-8.2); BASOPHILS 1.4 % (0.0-2.0); HEMATOCRIT 25.1 % (37.0-47.0); HEMOGLOBIN 8.2 gm/dL (12.0-15.0); LYMPHOCYTES 13.1 % (24.0-44.0); MCH 28.4 pg (26.0-34.0); MCHC 32.6 g/dL (28.0-37.0); MCV 87.1 fL (80.0-100.0); MONOCYTES 6.2 % (1.0-8.0); PLATELET COUNT 268 thou/uL (150-400); POLYS 72.3 % (36.0-66.0); RBC 2.88 mil/uL (4.20-5.00); RDW 15.8 % (10.5-14.5); WBC 5.2 thou/uL (4.0-11.0)
[2017-04-12 03:33] LABS: MANUAL DIFF NO
[2017-04-12 03:51] LABS: CALCIUM 8.5 mg/dL (8.5-10.1); CREATININE 2.4 mg/dL (0.6-1.0); MAGNESIUM 1.8 mg/dL (1.8-2.4); POTASSIUM 3.5 mmol/L (3.5-5.1)
[2017-04-12 05:24] LABS: ABG SAMPLE TYPE ARTERIAL; BE(vivo) -3.4 mmol/L (-2 to +3); HCO3 21.7 mmol/L (22.0-26.0); LACTATE 1.23 mmol/L (0.5-2.0); O2(CT) 11.2 mL/dL (15.0-23.0); O2Hb 94.1 % (92.0-98.0); PCO2 39.2 mmHg (35.0-45.0); PO2 77.8 mmHg (80.0-100.0); pH 7.362 (7.360-7.450); sO2 95.1 % (92.0-98.0)
[2017-04-12 05:25] LABS: STICK SITE R.RADIAL
[2017-04-13] VITALS (24 sets, daily range): BP systolic 118–157; BP diastolic 46–88
[2017-04-13 01:06] LABS: CORTISOL 30 MIN 17.6 ug/dL (Not Estab.); CORTISOL 60 MIN 19.4 ug/dL (Not Estab.); CORTISOL BASELINE 10.4 ug/dL (())
[2017-04-13 04:27] LABS: ABSOLUTE NEUTROPHILS 3.4 thou/uL (1.4-8.2); BASOPHILS 1.1 % (0.0-2.0); EOSINOPHILS 6.6 % (0.0-3.0); HEMATOCRIT 25.8 % (37.0-47.0); HEMOGLOBIN 8.4 gm/dL (12.0-15.0); LYMPHOCYTES 14.3 % (24.0-44.0); MCH 28.2 pg (26.0-34.0); MCHC 32.5 g/dL (28.0-37.0); MCV 86.7 fL (80.0-100.0); MONOCYTES 5.8 % (1.0-8.0); PLATELET COUNT 273 thou/uL (150-400); POLYS 72.2 % (36.0-66.0); RBC 2.98 mil/uL (4.20-5.00); WBC 4.8 thou/uL (4.0-11.0)
[2017-04-13 04:29] LABS: CALCIUM 8.9 mg/dL (8.5-10.1); CREATININE 2.5 mg/dL (0.6-1.0); POTASSIUM 3.6 mmol/L (3.5-5.1)
[2017-04-13 04:30] LABS: MANUAL DIFF NO
[2017-04-13 19:09] LABS: POTASSIUM 3.3 mmol/L (3.5-5.1)
[2017-04-14] VITALS (21 sets, daily range): BP systolic 136–161; BP diastolic 53–77
[2017-04-14 07:16] LABS: ABSOLUTE NEUTROPHILS 3.7 thou/uL (1.4-8.2); BASOPHILS 1.3 % (0.0-2.0); EOSINOPHILS 7.3 % (0.0-3.0); HEMATOCRIT 25.5 % (37.0-47.0); HEMOGLOBIN 8.2 gm/dL (12.0-15.0); LYMPHOCYTES 12.2 % (24.0-44.0); MANUAL DIFF NO; MCH 28.1 pg (26.0-34.0); MCHC 32.2 g/dL (28.0-37.0); MCV 87.2 fL (80.0-100.0); MONOCYTES 6.8 % (1.0-8.0); PLATELET COUNT 302 thou/uL (150-400); POLYS 72.4 % (36.0-66.0); RBC 2.93 mil/uL (4.20-5.00); RDW 16.1 % (10.5-14.5); WBC 5.1 thou/uL (4.0-11.0)
[2017-04-14 07:23] LABS: CALCIUM 9.6 mg/dL (8.5-10.1); CREATININE 2.3 mg/dL (0.6-1.0); POTASSIUM 3.4 mmol/L (3.5-5.1)
[2017-04-14 07:28] LABS: APTT 24.8 Seconds (24.5-32.8); PROTIME 10.7 Seconds (9.3-11.4)
[2017-04-14 15:06] LABS: IgA 118 mg/dL (64-422); IgG 899 mg/dL (700-1600); IgM 267 mg/dL (26-217)
[2017-04-15] VITALS (68 sets, daily range): BP systolic 88–170; BP diastolic 48–106
[2017-04-15 04:59] LABS: HEMATOCRIT 26.2 % (37.0-47.0); HEMOGLOBIN 8.3 gm/dL (12.0-15.0); MCHC 31.7 g/dL (28.0-37.0); MCV 88.3 fL (80.0-100.0); RBC 2.97 mil/uL (4.20-5.00); RDW 16.6 % (10.5-14.5); WBC 4.6 thou/uL (4.0-11.0)
[2017-04-15 05:09] LABS: CALCIUM 9.2 mg/dL (8.5-10.1); CREATININE 2.1 mg/dL (0.6-1.0); MAGNESIUM 2.1 mg/dL (1.8-2.4); POTASSIUM 3.6 mmol/L (3.5-5.1)
[2017-04-15 13:11] LABS: ANTI-DNA SCREEN <1 IU/mL (0-9); ANTI-RNP <0.2 AI (0.0-0.9)
[2017-04-16] VITALS (7 sets, daily range): BP systolic 137–148; BP diastolic 56–65
[2017-04-16 06:17] LABS: ABSOLUTE NEUTROPHILS 3.4 thou/uL (1.4-8.2); BASOPHILS 1.3 % (0.0-2.0); EOSINOPHILS 9.3 % (0.0-3.0); HEMOGLOBIN 7.7 gm/dL (12.0-15.0); LYMPHOCYTES 14.1 % (24.0-44.0); MCH 28.3 pg (26.0-34.0); MCHC 32.3 g/dL (28.0-37.0); MCV 87.7 fL (80.0-100.0); MONOCYTES 6.8 % (1.0-8.0); PLATELET COUNT 273 thou/uL (150-400); POLYS 68.5 % (36.0-66.0); RBC 2.74 mil/uL (4.20-5.00); RDW 16.7 % (10.5-14.5); WBC 4.9 thou/uL (4.0-11.0)
[2017-04-16 06:19] LABS: MANUAL DIFF NO
[2017-04-16 06:32] LABS: CREATININE 2.2 mg/dL (0.6-1.0); POTASSIUM 3.3 mmol/L (3.5-5.1)
[2017-04-16 09:08] LABS: GLOMERULR BASEM MEMBRN AB 5 units (0-20)
[2017-04-16 10:10] LABS: ANGIOTENSIN CONVERTNG ENZ 46 U/L (14-82)
[2017-04-16 15:06] LABS: c-ANCA <1:20 titer (Neg:<1:20); p-ANCA <1:20 titer (Neg:<1:20)
[2017-04-17 05:12] LABS: ABSOLUTE NEUTROPHILS 2.8 thou/uL (1.4-8.2); BASOPHILS 1.1 % (0.0-2.0); EOSINOPHILS 10.8 % (0.0-3.0); HEMATOCRIT 27.2 % (37.0-47.0); HEMOGLOBIN 8.6 gm/dL (12.0-15.0); LYMPHOCYTES 17.3 % (24.0-44.0); MCHC 31.8 g/dL (28.0-37.0); MCV 88.2 fL (80.0-100.0); PLATELET COUNT 259 thou/uL (150-400); POLYS 63.8 % (36.0-66.0); RBC 3.08 mil/uL (4.20-5.00); WBC 4.4 thou/uL (4.0-11.0)
[2017-04-17 05:38] LABS: MANUAL DIFF NO
[2017-04-17 06:01] LABS: ALBUMIN 2.5 g/dL (3.4-5.0); CALCIUM 8.8 mg/dL (8.5-10.1); CREATININE 2.1 mg/dL (0.6-1.0); PHOSPHORUS 4.1 mg/dL (2.5-4.9)
[2017-04-17 06:06] LABS: POTASSIUM 2.9 mmol/L (3.5-5.1)
[2017-04-17 08:01] VITALS: BP 155/65
[2017-04-17 08:08] LABS: CREATININE 2.1 mg/dL (0.6-1.0); MAGNESIUM 1.9 mg/dL (1.8-2.4)
[2017-04-17 08:10] LABS: POTASSIUM 2.9 mmol/L (3.5-5.1)
[2017-04-17 11:12] VITALS: BP 129/57
[2017-04-17 16:07] VITALS: BP 175/74
[2017-04-17 19:04] VITALS: BP 160/62
[2017-04-17 19:36] VITALS: BP 152/73
[2017-04-18 03:53] VITALS: BP 148/68
[2017-04-18 06:15] LABS: ABSOLUTE NEUTROPHILS 2.8 thou/uL (1.4-8.2); BASOPHILS 1.3 % (0.0-2.0); EOSINOPHILS 8.9 % (0.0-3.0); HEMATOCRIT 24.1 % (37.0-47.0); HEMOGLOBIN 7.7 gm/dL (12.0-15.0); LYMPHOCYTES 17.2 % (24.0-44.0); MCHC 32.2 g/dL (28.0-37.0); MCV 86.9 fL (80.0-100.0); MONOCYTES 6.6 % (1.0-8.0); PLATELET COUNT 217 thou/uL (150-400); RBC 2.77 mil/uL (4.20-5.00); RDW 16.8 % (10.5-14.5); WBC 4.3 thou/uL (4.0-11.0)
[2017-04-18 06:17] LABS: MANUAL DIFF NO
[2017-04-18 06:26] LABS: ALBUMIN 2.4 g/dL (3.4-5.0); CALCIUM 8.5 mg/dL (8.5-10.1); CREATININE 2.1 mg/dL (0.6-1.0); MAGNESIUM 1.8 mg/dL (1.8-2.4); PHOSPHORUS 3.8 mg/dL (2.5-4.9); POTASSIUM 3.6 mmol/L (3.5-5.1)
[2017-04-18 07:29] VITALS: BP 148/65
[2017-04-18 11:28] VITALS: BP 134/60
[2017-04-18 15:22] VITALS: BP 112/90
[2017-04-18 15:23] VITALS: BP 146/59
[2017-04-18 20:25] VITALS: BP 170/72
[2017-04-19 05:42] VITALS: BP 156/58
[2017-04-19 05:59] LABS: CALCIUM 8.8 mg/dL (8.5-10.1); CREATININE 2.1 mg/dL (0.6-1.0); MAGNESIUM 1.6 mg/dL (1.8-2.4); POTASSIUM 3.1 mmol/L (3.5-5.1)
[2017-04-19 06:20] LABS: ALBUMIN 2.5 g/dL (3.4-5.0); CALCIUM 8.6 mg/dL (8.5-10.1); CREATININE 2.1 mg/dL (0.6-1.0); PHOSPHORUS 3.8 mg/dL (2.5-4.9); POTASSIUM 3.2 mmol/L (3.5-5.1)
[2017-04-19 07:10] VITALS: BP 152/55
[2017-04-19 11:06] VITALS: BP 140/57
[2017-04-19] MEDS ORDERED: ITRACONAZOLE 1100 M1 PO (11:46)
[2017-04-19 15:22] VITALS: BP 143/47
[2017-04-19 19:23] VITALS: BP 165/56
[2017-04-20 03:44] VITALS: BP 154/64
[2017-04-20 07:21] VITALS: BP 161/59
[2017-04-20 07:49] LABS: ALBUMIN 2.5 g/dL (3.4-5.0); CALCIUM 8.5 mg/dL (8.5-10.1); CREATININE 2.1 mg/dL (0.6-1.0); PHOSPHORUS 4.4 mg/dL (2.5-4.9); POTASSIUM 3.6 mmol/L (3.5-5.1)
[2017-04-20 16:29] VITALS: BP 153/61
[2017-04-20 19:41] VITALS: BP 161/58
[2017-04-21 04:14] VITALS: BP 155/65
[2017-04-21 05:30] LABS: HEMATOCRIT 24.1 % (37.0-47.0); HEMOGLOBIN 7.7 gm/dL (12.0-15.0); MCHC 31.9 g/dL (28.0-37.0); MCV 87.6 fL (80.0-100.0); RBC 2.76 mil/uL (4.20-5.00); RDW 16.6 % (10.5-14.5); WBC 3.8 thou/uL (4.0-11.0)
[2017-04-21 05:40] LABS: ALBUMIN 2.4 g/dL (3.4-5.0); CALCIUM 8.7 mg/dL (8.5-10.1); CREATININE 2.1 mg/dL (0.6-1.0); PHOSPHORUS 4.8 mg/dL (2.5-4.9); POTASSIUM 3.8 mmol/L (3.5-5.1)
[2017-04-21 07:34] VITALS: BP 143/53
[2017-04-21] MEDS ORDERED: AUGMENTIN 875-1 EACH PO (10:04)
[2017-04-21] MEDS ORDERED: NASAL DECONGEST30 ML NASAL (10:04)
== END 2017-04-21 14:04 | DRG 853 ==
LOC: ER 09:41 → 4W 13:08 → 4S 13:08 → EROBS 13:08 → 4S 14:31 → ICU 03-31 11:32 → 4W 04-05 16:44 → ICU 04-11 08:43 → 4W 04-16 02:00
PROVIDERS: Emergency Medicine; Family Medicine; Hospitalist; Internal Medicine; Internal Medicine Cardiovascular Disease; Internal Medicine Endocrinology, Diabetes & Metabolism; Internal Medicine Pulmonary Disease; Nurse Practitioner Family; Registered Nurse
PROC: 0W993ZZ Drainage of Right Pleural Cavity, Percutaneous Approach (ICD-10-PCS; 2017-03-31)
PROC: BB4BZZZ Ultrasonography of Pleura (ICD-10-PCS; 2017-04-03)
PROC: 0W9B3ZZ Drainage of Left Pleural Cavity, Percutaneous Approach (ICD-10-PCS; 2017-04-03)
PROC: 5A09357 Assistance with Respiratory Ventilation, Less than 24 Consecutive Hours, Continuous Positive Airway Pressure (ICD-10-PCS; 2017-04-12)
PROC: 0B9J8ZX Drainage of Left Lower Lung Lobe, Via Natural or Artificial Opening Endoscopic, Diagnostic (ICD-10-PCS; principal; 2017-04-15)
DX: A41.9 Sepsis, unspecified organism (principal); J18.9 Pneumonia, unspecified organism; E43 Unspecified severe protein-calorie malnutrition; I50.33 Acute on chronic diastolic (congestive) heart failure; J96.21 Acute and chronic respiratory failure with hypoxia; N39.0 Urinary tract infection, site not specified; I47.2 Ventricular tachycardia; J98.11 Atelectasis; E87.0 Hyperosmolality and hypernatremia; N17.9 Acute kidney failure, unspecified; I13.0 Hypertensive heart and chronic kidney disease with heart failure and stage 1 through stage 4 chronic kidney disease, or unspecified chronic kidney disease; N18.4 Chronic kidney disease, stage 4 (severe); B39.9 Histoplasmosis, unspecified; K57.90 Diverticulosis of intestine, part unspecified, without perforation or abscess without bleeding; I73.9 Peripheral vascular disease, unspecified; E78.5 Hyperlipidemia, unspecified; J44.9 Chronic obstructive pulmonary disease, unspecified; E87.6 Hypokalemia; I71.4 Abdominal aortic aneurysm, without rupture; E03.9 Hypothyroidism, unspecified; D47.2 Monoclonal gammopathy; D63.8 Anemia in other chronic diseases classified elsewhere; M19.90 Unspecified osteoarthritis, unspecified site; E27.8 Other specified disorders of adrenal gland; B95.2 Enterococcus as the cause of diseases classified elsewhere; I95.1 Orthostatic hypotension; K59.00 Constipation, unspecified; G47.33 Obstructive sleep apnea (adult) (pediatric); E83.42 Hypomagnesemia; R04.0 Epistaxis; J34.0 Abscess, furuncle and carbuncle of nose; I25.10 Atherosclerotic heart disease of native coronary artery without angina pectoris; I65.29 Occlusion and stenosis of unspecified carotid artery; Z90.710 Acquired absence of both cervix and uterus; Z98.42 Cataract extraction status, left eye; Z98.62 Peripheral vascular angioplasty status; Z98.41 Cataract extraction status, right eye; Z87.891 Personal history of nicotine dependence; Z88.1 Allergy status to other antibiotic agents; Z82.49 Family history of ischemic heart disease and other diseases of the circulatory system; Z79.899 Other long term (current) drug therapy; Z68.22 Body mass index [BMI] 22.0-22.9, adult; Z99.81 Dependence on supplemental oxygen
CPT/HCPCS: 10045; 10078; 10102

== ENCOUNTER → 2017-05-20 | Outpatient (CLI) | payer OTHER ==
[~2017-05-20] MED LIST changes: +AUGMENTIN 875-1 EACH PO; +ITRACONAZOLE 1100 M1 PO; +LASIX 40 MG TAB40 M2 PO; +NASAL DECONGEST30 ML NASAL; +NORVASC5 MG PO
== END ==
LOC: RAD 14:01
DX: R06.00 Dyspnea, unspecified (principal)

== ENCOUNTER → 2017-06-28 | Outpatient (CLI) | payer OTHER ==
[~2017-06-28] MED LIST changes: +BYSTOLIC 5 MG5 M1 PO; +CLONIDINE0.1 PO; +COZAAR 50 MG TA50 M2 PO; +KLOR-CON M1010 MEQ PO
== END ==
LOC: RAD 09:35
DX: R06.00 Dyspnea, unspecified (principal)

== ENCOUNTER 2017-06-29 04:36 | Inpatient (IN) | payer OTHER ==
[2017-06-29] VITALS (21 sets, daily range): BP systolic 110–182; BP diastolic 50–75
[~2017-06-29] VITALS: Ht 167.6 cm; Wt 69.9 kg
--- NOTE | ~2017-06-29 | EKG ---
[address] [place] [address] ELECTROCARDIOGRAM REPORT Name: ARMANDO STILL Room #: 170-6 ADM IN M.R.#: [id number] Admission: 06/29/17 Attend Phys: Tea Parker Discharge: Date of : 34 Report #: [id number] THIS REPORT FOR: //name// [facility] ED Test Date: 2017-06-29 Test Time: 04:45:22 Pat Name: ARMANDO STILL Department: Room: 170 Gender: F Classer: COLE : 1935 Requested By: Luke Gilliland Order Number: [id number] MD: Sarbjit Cherry Measurements Intervals [place] Rate: 80 P: 25 [place]: 173 QRS: 3 QRSD: 99 T: 166 QT: 390 QTc: 450 Interpretive Statements Sinus rhythm LVH with secondary repolarization abnormality Compared to ECG 04/11/2017 10:51:36 Ventricular premature complex(es) no longer present ST and T wave abnormality is more pronounced Electronically Signed On 06-29-2017 7:27:14 CDT by Sarbjit Cherry [email or web address] <ELECTRONICALLY SIGNED> By: Sarbjit Cherry MD, [facility] 06/29/17 0727 0445 0445 Sarbjit Cherry MD, [facility] /EPI
--- NOTE | ~2017-06-29 | HC ---
[facility] [place] [address] CONSULTATION Name: ARMANDO STILL Room #: [facility]- ADM IN M.R.#: [id number] Admission: 06/29/17 Attend Phys: Tea Parker Discharge: Date of : 33 Report #: [id number] THIS REPORT FOR: //name// CC: Jurgen Barahona DATE OF SERVICE: 06/29/2017 REASON FOR CONSULTATION: Acute hypoxic respiratory failure. IMPRESSION: 1. Acute hypoxic respiratory failure. 2. Acute pulmonary edema secondary to hypertension. 3. Chronic obstructive pulmonary disease. 4. Anemia. 5. History of disseminated histoplasmosis. 6. Abdominal aortic aneurysm. 7. Coronary artery disease. 8. Acute kidney injury. PLAN: 1. Aerosol therapy. Renal and cardiology to work together to control her pressure. 2. ID to see for followup of histo. HISTORY OF PRESENT ILLNESS: This is a very pleasant 81-year-old female who was doing well, difficult to control blood pressure, seen by Dr. Barahona last week and doing well. MEDICATIONS: Included Lasix, clonidine, Bystolic, losartan, levothyroxine, atorvastatin, Plavix, and itraconazole. SOCIAL HISTORY: Positive tobacco in past. Negative ETOH. ALLERGIES: To NEOSPORIN. REVIEW OF SYSTEMS: Include disseminated histoplasmosis, abdominal aortic aneurysm, COPD, hypertension, hypothyroidism, CKD, monoclonal gammopathy, hyperlipidemia, peripheral vascular disease, and history of renal artery stent. She was on BiPAP and seen earlier in the morning and then doing better in the afternoon. Positive shortness breath, orthostatic. Positive cough. No hemoptysis. No fever or chills. PAST SURGICAL HISTORY: Carotid endarterectomy. PHYSICAL EXAMINATION: VITAL SIGNS: Temperature 98.9, pulse 59, respirations 23, and BP 181/66. [facility] [address] [place] [address] CONSULTATION Name: ARMANDO STILL Room #: 243-P [facility] IN .R.#: [id number] Admission: 06/29/17 Attend Phys: Tea Parker Discharge: Date of : 34 Report #: [id number] Chest x-ray showed right costophrenic angle. White count 11.3, hemoglobin 9.6, and platelets 240. BUN 47 and creatinine 2.4. ProBNP 12,000. Magnesium 2. Chest x-ray showed bilateral infiltrates. TSH 0.304. <ELECTRONICALLY SIGNED> By: Lalitha Weber MD 07/01/171906 16 09 Lalitha Weber MD /nt
--- NOTE | ~2017-06-29 | HC ---
[facility] [place] [address] CONSULTATION Name: ARMANDO STILL Room #: 239-P [facility] IN M.R.#: [id number] Admission: 06/29/17 Attend Phys: Tea Parker Discharge: 07/05/17 Date of : 33 Report #: [id number] THIS REPORT FOR: //name// CC: Jurgen Barahona REASON FOR CONSULTATION: Elevated blood pressure and CKD. REASON FOR PRESENTATION: Shortness of breath. HISTORY OF PRESENT ILLNESS: This is a well known patient for me. She is known to have chronic kidney disease with multiple comorbid conditions including peripheral arterial disease, hypertension, hyperlipidemia, status post of endarterectomy, disseminated histo, and AAA. She is known to have a baseline creatinine of around 2.6 to 2.7. There had been some issues with her blood pressure control with some adjustment as an outpatient; however, this has failed and the patient started to have shortness of breath. She presented for further evaluation and management and was found to have an elevated blood pressure in the 200s, I was consulted to manage her blood pressure issues. Investigations revealed that she might be having renal artery stenosis. PAST MEDICAL HISTORY: 1. CKD. 2. Hypertension. 3. Peripheral arterial disease. 4. Status post endarterectomy. 5. AAA. 6. There is a mention of right renal artery stent. 7. Hypothyroidism. 8. Hyperlipidemia. 9. Degenerative joint disease. 10. COPD. From the renal perspective, she runs a baseline creatinine of around 2.5. ALLERGIES: NEOSPORIN. SOCIAL HISTORY: Ex-smoker. No drug or alcohol abuse. FAMILY HISTORY: Significant for coronary artery disease, no renal disease. REVIEW OF SYSTEMS: GENERAL: Significant for shortness of breath. CARDIOVASCULAR: No chest pain. PULMONARY: Shortness of breath. GASTROINTESTINAL: No nausea or vomiting. GENITOURINARY: No frequency, no urgency. NEUROLOGIC: Significant for weakness. [facility] [address] [place] [address] CONSULTATION Name: ARMANDO STILL Room #: 239-P [facility] IN [facility].#: [id number] Admission: 06/29/17 Attend Phys: Tea Parker Discharge: 07/05/17 Date of : 33 Report #: [id number] HOME MEDICATIONS: 1. Itraconazole. 2. Plavix. 3. Bystolic. 4. Clonidine. 5. Lasix. 6. Levothyroxine. 7. Losartan. PHYSICAL EXAMINATION: GENERAL: She is alert and oriented. VITAL SIGNS: Blood pressure is elevated at 182/63. HEAD AND NECK: No jugular venous distention, no bruit, no thyromegaly. CHEST: Minimal crackles. CARDIOVASCULAR: No rub detected. ABDOMEN: Soft and nontender. LOWER EXTREMITIES: No edema. LABORATORY VALUES: Reviewed. Creatinine is 2.8 this morning, Sodium 146. TSH was . Urinalysis was reviewed. Imaging including her ultrasound was reviewed. ASSESSMENT, IMPRESSION, AND PLAN: 1. Chronic kidney disease. 2. Remote history of renal artery stenosis. 3. Hypertension, out of control. 4. Disseminated histoplasmosis. 5. Chronic kidney disease with creatinine at baseline. 6. Peripheral arterial disease. I had a lengthy discussion with the family and with Dr. Cyone regarding this patient. Risk of angiogram and stenting of her renal arteries were discussed with the family. Dr. Coyne will address those issues with them. As for now, we will aim for a control of the blood pressure with medications. I will titrate up the dose of her Aldactone to a full dose 100 mg. Potassium is being replaced. The dose of her losartan should be the same. Bystolic dose was increased; however, we will have to watch her pulse rate. Norvasc dose was also increased. She remains to be at high risk from any [facility] [address] [place] [address] CONSULTATION Name: ARMANDO STILL Room #: 239[facility] IN .R.#: [id number] Admission: 06/29/17 Attend Phys: Tea Parker Discharge: 07/05/17 Date of : 33 Report #: [id number] procedures including the angiogram giving her abdominal aortic aneurysm and her kidney function and we will discuss further with her family members. <ELECTRONICALLY SIGNED> By: Angela Harmon MD 07/14/17 1000 [id number] Angela Harmon MD /nt
--- NOTE | ~2017-06-29 | DEA ---
[facility] [place] [address] SUMMARY Name: ARMANDO STILL Room #: 239-P [facility] IN M.R.#: [id number] Admission: 06/29/17 Attend Phys: Tea Parker Discharge: 07/05/17 Date of : 33 Report #: [id number] THIS REPORT FOR: //name// CC: Jurgen Barahona DATE OF SERVICE: 07/06/2017 FINAL DIAGNOSES: 1. Chronic obstructive pulmonary disease. 2. Acute renal failure. 3. Renal artery stenosis. 4. Hypertension. 5. Peripheral vascular disease. 6. Acute diastolic congestive heart failure. HOSPITAL COURSE: The patient was admitted with shortness of breath. She was found to have an acute episode of heart failure related to underlying heart disease, hypertension and acute renal failure. She was treated in ICU. Ultimately, she was taken for arteriogram of the renal arteries with stent placement. Please see that report. She was followed by the Cardiology, Pulmonary, Infectious Disease and Renal services. However, her condition really did not improve. Her respiratory status continued to deteriorate despite full pulmonary treatments. She was requiring BiPAP due to worsening of her underlying chronic obstructive pulmonary disease and pulmonary status. Multiple conversations were held with the family including her daughters. Ultimately, they recognized her frail health status and requested do not resuscitate status with no intubation. She was already deemed an unsuitable medical candidate for dialysis in the event of complete renal failure. Ultimately, supportive palliative care measures were entertained and she on 07/05/2017. By: [id number] Alvaro Cazares MD /lashanda
--- NOTE | ~2017-06-29 | H ---
[facility] [place] [address] HISTORY AND PHYSICAL Name: ARMANDO STILL Room #: 243-P ADM IN M.R.#: [id number] Admission: 06/29/17 Attend Phys: Tea Parker Discharge: Date of : 33 Report #: [id number] THIS REPORT FOR: //name// CC: Jurgen Barahona DATE OF SERVICE: 06/29/2017 CHIEF COMPLAINT: Shortness of breath. HISTORY OF PRESENT ILLNESS: The patient is an 81-year-old female with multiple medical problems, who came to the Emergency Room with shortness of breath. She had sudden onset of difficulty breathing at home. She had no chest pain, fever, chills or productive cough. She presented in moderate respiratory distress and was noted with elevated blood pressures at home per EMS records. She recently just discharged from a long-term care hospital after a prolonged hospital stay related to pulmonary infection. PAST MEDICAL HISTORY: Hypertension; diverticulosis; peripheral artery disease, status carotid endarterectomy; COPD; abdominal aneurysm; previous renal artery stents; hypertension and monoclonal gammopathy. She recently had an infection with disseminated histoplasmosis. She has had a history of nonsustained ventricular tachycardia. PAST SURGICAL HISTORY: As above. FAMILY HISTORY: Noncontributory. SOCIAL HISTORY: She was living at home. She has a remote [id number] history of smoking. ALLERGIES: None. MEDICATIONS: Itraconazole, Plavix, Lipitor, clonidine, Bystolic, losartan, potassium, Lasix and Synthroid. REVIEW OF SYSTEMS: She denies headache, chest pain, shortness of breath, abdominal pain, nausea, vomiting, diarrhea, constipation, dysuria, syncope or fall. PHYSICAL EXAMINATION: VITAL SIGNS: Temperature 37.8, pulse 75, respirations 24, blood pressure 139/62 and O2 sat 98% on BiPAP. GENERAL: She is awake and alert, in no distress. Answers questions appropriately. HEAD AND NECK: Unremarkable. BiPAP in place. LUNGS: Clear anteriorly. [facility] [address] [place] [address] HISTORY AND PHYSICAL Name: ARMANDO STILL Room #: [address] [place] [address] [place] .R.#: [id number] Admission: 06/29/17 Attend Phys: Tea Parker Discharge: Date of : 33 Report #: [id number] HEART: Regular. ABDOMEN: Soft. Normoactive bowel sounds. EXTREMITIES: No edema. NEUROLOGIC: Motor strength 4/5 throughout. LABORATORY DATA: We have reviewed electronic lab and radiology data consultation notes. ASSESSMENT: 1. Hypertensive emergency. 2. Acute hypoxic respiratory failure. 3. Acute pulmonary edema due to hypertensive emergency. 4. Chronic diastolic heart failure, ejection fraction 65%. 5. Coronary artery disease. 6. Peripheral artery disease. 7. Abdominal aortic aneurysm. 8. Chronic obstructive pulmonary disease. 9. Hypokalemia. 10. Anemia of chronic disease. 11. History of disseminated histoplasmosis. PLAN: Pulmonary and Cardiology service has been consulted and treatment has been initiated. I will ask Dr. Alberto Barahona to follow her as well given recent infection history. <ELECTRONICALLY SIGNED> By: Alvaro Cazares MD 06/30/17 1302 1012 1041 Alvaro Cazares MD /nt
[~2017-06-29 04:36] MED LIST changes: -BYSTOLIC 5 MG5 M1 PO; -CLONIDINE0.1 PO; -COZAAR 50 MG TA50 M2 PO; -KLOR-CON M1010 MEQ PO
[2017-06-29 05:03] LABS: ABSOLUTE NEUTROPHILS 8.3 thou/uL (1.4-8.2); BASOPHILS 0.6 % (0.0-2.0); EOSINOPHILS 3.9 % (0.0-3.0); HEMATOCRIT 30.4 % (37.0-47.0); HEMOGLOBIN 9.6 gm/dL (12.0-15.0); LYMPHOCYTES 17.8 % (24.0-44.0); MCH 27.3 pg (26.0-34.0); MCHC 31.7 g/dL (28.0-37.0); MONOCYTES 4.3 % (1.0-8.0); PLATELET COUNT 240 thou/uL (150-400); POLYS 73.4 % (36.0-66.0); RBC 3.53 mil/uL (4.20-5.00); WBC 11.3 thou/uL (4.0-11.0)
[2017-06-29 05:10] LABS: MANUAL DIFF NO
[2017-06-29 05:11] LABS: ANION GAP 9 mmol/L (7-16); BUN 47 mg/dL (7-18); CALCIUM 8.7 mg/dL (8.5-10.1); CHLORIDE 105 mmol/L (98-107); CO2 30 mmol/L (21-32); CREATININE 2.4 mg/dL (0.6-1.0); GLUCOSE 154 mg/dL (74-106); SODIUM 144 mmol/L (136-145)
[2017-06-29 05:17] LABS: POTASSIUM 2.9 mmol/L (3.5-5.1)
[2017-06-29 05:20] LABS: TROPONIN-I < 0.04 ng/mL (<0.04-0.07)
[2017-06-29] MEDS ORDERED: CLONIDINE0.1 PO (05:25)
[2017-06-29] MEDS ORDERED: BYSTOLIC 5 MG5 M1 PO (05:26)
[2017-06-29] MEDS ORDERED: COZAAR 50 MG TA50 M2 PO (05:27)
[2017-06-29] MEDS ORDERED: KLOR-CON M1010 MEQ PO (05:29)
[2017-06-29 10:05] LABS: URINE BILIRUBIN NEGATIVE (Negative); URINE BLOOD TRACE (Negative); URINE COLOR YELLOW; URINE GLUCOSE-RANDOM* NEGATIVE (Negative); URINE KETONES NEGATIVE (Negative); URINE NITRITE NEGATIVE (Negative); URINE PROTEIN (DIPSTICK) 1+ (Negative); URINE SPECIFIC GRAVITY 1.015 (1.003-1.035); URINE UROBILINOGEN 0.2 E.U./dl (0.2-1.0)
[2017-06-29 10:22] LABS: BACTERIA 1-9 Few /HPF (None Seen); CASTS None Seen /LPF (None Seen); CRYSTALS None Seen /LPF (None Seen); SQUAMOUS None Seen /LPF (0-3); URINE RBC 0-2 Rare /HPF (0-2); URINE WBC 0-5 Rare /HPF (0-5)
[2017-06-29 15:29] LABS: CALCIUM 8.3 mg/dL (8.5-10.1); CREATININE 2.6 mg/dL (0.6-1.0); POTASSIUM 3.1 mmol/L (3.5-5.1)
[2017-06-30] VITALS (47 sets, daily range): BP systolic 134–182; BP diastolic 48–116
[2017-06-30 06:22] LABS: HEMATOCRIT 23.8 % (37.0-47.0); HEMOGLOBIN 7.7 gm/dL (12.0-15.0); MCH 27.9 pg (26.0-34.0); MCHC 32.4 g/dL (28.0-37.0); MCV 86.2 fL (80.0-100.0); RBC 2.76 mil/uL (4.20-5.00)
[2017-06-30 06:29] LABS: CALCIUM 8.4 mg/dL (8.5-10.1); CREATININE 2.8 mg/dL (0.6-1.0)
[2017-06-30 11:09] LABS: FREE T4 0.89 ng/dL (0.82-1.77)
[2017-07-01] VITALS (81 sets, daily range): BP systolic 99–187; BP diastolic 42–110
[2017-07-01 06:03] LABS: HEMATOCRIT 26.2 % (37.0-47.0); HEMOGLOBIN 8.3 gm/dL (12.0-15.0); MCH 27.8 pg (26.0-34.0); MCHC 31.7 g/dL (28.0-37.0); MCV 87.7 fL (80.0-100.0); RBC 2.99 mil/uL (4.20-5.00); RDW 17.4 % (10.5-14.5); WBC 8.3 thou/uL (4.0-11.0)
[2017-07-01 06:18] LABS: ALBUMIN 2.7 g/dL (3.4-5.0); CALCIUM 8.4 mg/dL (8.5-10.1); CREATININE 2.7 mg/dL (0.6-1.0); POTASSIUM 4.1 mmol/L (3.5-5.1)
[2017-07-01 15:42] LABS: ABG SAMPLE TYPE ARTERIAL; BE(vivo) -5.8 mmol/L (-2 to +3); HCO3 21.3 mmol/L (22.0-26.0); LACTATE 1.22 mmol/L (0.5-2.0); O2(CT) 12.2 mL/dL (15.0-23.0); O2Hb 95.8 % (92.0-98.0); PO2 104.2 mmHg (80.0-100.0); Pressure Support 6 cm H20; STICK SITE R.RADIAL; pH 7.248 (7.360-7.450); sO2 96.9 % (92.0-98.0); tCO2 22.9 mmol/L (24.0-30.0)
[2017-07-01 16:25] LABS: MCH 28.1 pg (26.0-34.0); MCV 87.9 fL (80.0-100.0); PLATELET COUNT 221 thou/uL (150-400); RBC 2.85 mil/uL (4.20-5.00); RDW 17.9 % (10.5-14.5); WBC 10.2 thou/uL (4.0-11.0)
[2017-07-01 16:27] LABS: MANUAL DIFF YES
[2017-07-01 16:31] LABS: CALCIUM 8.4 mg/dL (8.5-10.1); CREATININE 2.9 mg/dL (0.6-1.0)
[2017-07-01 16:40] LABS: ALBUMIN 2.5 g/dL (3.4-5.0); TOTAL BILIRUBIN 1.8 mg/dL (<0.1-1.0); TOTAL PROTEIN 6.3 g/dL (6.4-8.2); TROPONIN-I 0.17 ng/mL (<0.04-0.07)
[2017-07-01 17:08] LABS: TOTAL CELL COUNT 100
[2017-07-01 17:09] LABS: ANISOCYTOSIS 1+
[2017-07-01 17:14] LABS: ABG SAMPLE TYPE ARTERIAL; BE(vivo) -3.8 mmol/L (-2 to +3); HCO3 21.5 mmol/L (22.0-26.0); LACTATE 1.41 mmol/L (0.5-2.0); O2(CT) 11.1 mL/dL (15.0-23.0); PCO2 40.2 mmHg (35.0-45.0); pH 7.347 (7.360-7.450); sO2 91.5 % (92.0-98.0); tCO2 22.8 mmol/L (24.0-30.0)
[2017-07-01 17:15] LABS: Pressure Support 10 cm H20; STICK SITE R.RADIAL
[2017-07-01 21:17] LABS: ABG COMMENT V60 18/8 10 100%; ABG SAMPLE TYPE ARTERIAL; BE(vivo) -5.4 mmol/L (-2 to +3); LACTATE 0.87 mmol/L (0.5-2.0); O2(CT) 10.2 mL/dL (15.0-23.0); PCO2 38.6 mmHg (35.0-45.0); Pressure Support 10 cm H20; STICK SITE R.BRACHIAL; pH 7.332 (7.360-7.450); sO2 93.1 % (92.0-98.0); tCO2 21.2 mmol/L (24.0-30.0)
[2017-07-02] VITALS (40 sets, daily range): BP systolic 120–165; BP diastolic 50–92
[2017-07-02 05:10] LABS: ALBUMIN 2.5 g/dL (3.4-5.0); CALCIUM 8.8 mg/dL (8.5-10.1); CREATININE 3.2 mg/dL (0.6-1.0); PHOSPHORUS 5.5 mg/dL (2.5-4.9)
[2017-07-02 05:28] LABS: ABG SAMPLE TYPE ARTERIAL; HCO3 21.8 mmol/L (22.0-26.0); O2(CT) 11.1 mL/dL (15.0-23.0); O2Hb 91.8 % (92.0-98.0); PO2 68.7 mmHg (80.0-100.0); sO2 92.4 % (92.0-98.0); tCO2 23.1 mmol/L (24.0-30.0)
[2017-07-02 05:29] LABS: STICK SITE L.RADIAL; pH 7.322 (7.360-7.450)
[2017-07-03] VITALS (31 sets, daily range): BP systolic 111–185; BP diastolic 50–90
[2017-07-03 05:10] LABS: ALBUMIN 2.6 g/dL (3.4-5.0); CALCIUM 8.8 mg/dL (8.5-10.1); CREATININE 3.5 mg/dL (0.6-1.0); PHOSPHORUS 7.4 mg/dL (2.5-4.9)
[2017-07-03 05:14] LABS: APTT 28.2 Seconds (24.5-32.8); INR 1.1; PROTIME 11.4 Seconds (9.3-11.4)
[2017-07-03 12:07] LABS: ABG SAMPLE TYPE ARTERIAL; BE(vivo) -4.4 mmol/L (-2 to +3); HCO3 21.3 mmol/L (22.0-26.0); O2(CT) 10.6 mL/dL (15.0-23.0); O2Hb 88.1 % (92.0-98.0); PCO2 41.9 mmHg (35.0-45.0); PO2 60.2 mmHg (80.0-100.0); STICK SITE L.RADIAL; pH 7.324 (7.360-7.450); sO2 89.3 % (92.0-98.0); tCO2 22.6 mmol/L (24.0-30.0)
[2017-07-03 12:08] LABS: Pressure Support 14 cm H20; VDS BIPAP SPON TIME 14/6 cc
[2017-07-04] VITALS (25 sets, daily range): BP systolic 115–174; BP diastolic 49–93
[2017-07-04 05:09] LABS: HEMATOCRIT 23.6 % (37.0-47.0); HEMOGLOBIN 7.6 gm/dL (12.0-15.0); MCH 27.7 pg (26.0-34.0); MCHC 32.3 g/dL (28.0-37.0); MCV 85.9 fL (80.0-100.0); RBC 2.74 mil/uL (4.20-5.00); RDW 17.6 % (10.5-14.5); WBC 7.4 thou/uL (4.0-11.0)
[2017-07-04 05:22] LABS: ALBUMIN 2.6 g/dL (3.4-5.0); CALCIUM 8.8 mg/dL (8.5-10.1); CREATININE 3.7 mg/dL (0.6-1.0); PHOSPHORUS 6.1 mg/dL (2.5-4.9); POTASSIUM 3.5 mmol/L (3.5-5.1)
[2017-07-05] VITALS (18 sets, daily range): BP systolic 74–169; BP diastolic 42–106
[2017-07-05 04:53] LABS: ALBUMIN 2.4 g/dL (3.4-5.0); CREATININE 3.9 mg/dL (0.6-1.0); PHOSPHORUS 6.3 mg/dL (2.5-4.9)
[2017-07-05 04:56] LABS: POTASSIUM 2.7 mmol/L (3.5-5.1)
[2017-07-05 05:12] LABS: ABG SAMPLE TYPE ARTERIAL; BE(vivo) -2.4 mmol/L (-2 to +3); HCO3 23.4 mmol/L (22.0-26.0); LACTATE 1.33 mmol/L (0.5-2.0); O2(CT) 9.2 mL/dL (15.0-23.0); O2Hb 85.4 % (92.0-98.0); PCO2 44.8 mmHg (35.0-45.0); PO2 58.1 mmHg (80.0-100.0); pH 7.335 (7.360-7.450); sO2 88.4 % (92.0-98.0); tCO2 24.7 mmol/L (24.0-30.0)
[2017-07-05 05:13] LABS: Pressure Support 8 cm H20; STICK SITE L.RADIAL
== END 2017-07-05 23:52 | DRG 673 ==
LOC: ER 04:36 → ICU 05:41 → EROBS 05:41 → ICU 08:03
PROVIDERS: Emergency Medicine; Hospitalist; Internal Medicine; Internal Medicine Geriatric Medicine; Internal Medicine Pulmonary Disease; Nuclear Medicine Nuclear Cardiology
PROC: 5A09557 Assistance with Respiratory Ventilation, Greater than 96 Consecutive Hours, Continuous Positive Airway Pressure (ICD-10-PCS; 2017-06-29)
PROC: 04793DZ Dilation of Right Renal Artery with Intraluminal Device, Percutaneous Approach (ICD-10-PCS; principal; 2017-06-30)
PROC: 047A3DZ Dilation of Left Renal Artery with Intraluminal Device, Percutaneous Approach (ICD-10-PCS; principal; 2017-06-30)
DX: I70.1 Atherosclerosis of renal artery (principal); J96.01 Acute respiratory failure with hypoxia; N17.9 Acute kidney failure, unspecified; I16.1 Hypertensive emergency; I50.32 Chronic diastolic (congestive) heart failure; I16.9 Hypertensive crisis, unspecified; N18.4 Chronic kidney disease, stage 4 (severe); I13.0 Hypertensive heart and chronic kidney disease with heart failure and stage 1 through stage 4 chronic kidney disease, or unspecified chronic kidney disease; E44.0 Moderate protein-calorie malnutrition; Z66 Do not resuscitate; E78.5 Hyperlipidemia, unspecified; I73.9 Peripheral vascular disease, unspecified; J44.9 Chronic obstructive pulmonary disease, unspecified; I25.10 Atherosclerotic heart disease of native coronary artery without angina pectoris; I71.4 Abdominal aortic aneurysm, without rupture; M19.90 Unspecified osteoarthritis, unspecified site; B39.9 Histoplasmosis, unspecified; E87.6 Hypokalemia; D63.8 Anemia in other chronic diseases classified elsewhere; Z90.710 Acquired absence of both cervix and uterus; Z98.42 Cataract extraction status, left eye; Z98.41 Cataract extraction status, right eye; Z87.891 Personal history of nicotine dependence; Z79.899 Other long term (current) drug therapy; Z88.8 Allergy status to other drugs, medicaments and biological substances; Z82.49 Family history of ischemic heart disease and other diseases of the circulatory system; Z68.24 Body mass index [BMI] 24.0-24.9, adult; Z51.5 Encounter for palliative care
CPT/HCPCS: 10078